=== PATIENT | female | born 1930 | race Caucasian/White ===

== ENCOUNTER 2016-11-22 12:54 | Observation (INO) ==
--- NOTE | 2016-11-22 13:06 | Emergency Department Note ---
Disposition Clinical Impression: Weakness, Frail elderly, Dizziness, Dementia, Skull defect, Bradycardia, COPD ( chronic obstructive pulmonary disease), Cerebrovascular disease, Hyperkalemia Disposition: Admitted As Inpatient Referrals: Stephanie Omer CNP [Primary Care Provider] - Forms: ED Satisfaction Letter General Adult HPI - General Chief complaint: ED Dizziness Stated complaint: Dizziness and lightheadness Time Seen by Provider: 11/22/16 13:05 Source: patient, family, EMS Limitations: no limitations - History of Present Illness HPI Narrative: 86-year-old female was brought in by EMS, there are concerns for dizziness and shortness of breath. The patient has a history of dementia and just started taking Aricept. She usually takes medication for her dizziness, meclizine, but it has been ineffective. The patient's daughter is here with her. The daughter explains that the patient has recently seen Dr. 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 There is no history of head trauma or fall. There is no history of chest pain shortness breath or abdominal pain no vomiting or diarrhea. The patient has been progressively confused no fevers or rashes or neck stiffness or acute back pain are reported or noted. There is been no trouble moving the arms or legs independently, no unilateral arm or leg weakness no dysarthria no seizures. The patient takes Plavix but no other blood thinners there is no history of bleeding or urinary symptoms. He has no history of robbin syncope. The patient's daughter reports the patient has become progressively weaker and can no longer take care of herself at home and requests evaluation and possible [place]. Pain Scale: 0 - Related Data Home Medications Medication Instructions Recorded Confirmed Alprazolam [Xanax] 0.25 mg PO Q8HR 07/03/15 02/09/16 Furosemide [Lasix] 20 mg PO QAM 07/03/15 02/09/16 Isosorbide MONOnitrate (24 HR) 30 mg PO QPM 07/03/15 02/09/16 [Imdur] Levothyroxine [Synthroid] 100 mcg PO QAM 07/03/15 02/09/16 Metoprolol [Lopressor] 12.5 mg PO BID 07/03/15 02/09/16 Simvastatin [Zocor] 40 mg PO HS 07/03/15 02/09/16 Amlodipine [Norvasc] 5 mg PO QAM 02/09/16 02/09/16 Clopidogrel [Plavix] 75 mg PO QAM 02/09/16 02/09/16 HYDROcodone/Acet 5/325 mg [[place] 1 tab PO HS 02/09/16 02/09/16 5-325 mg] Lansoprazole [Prevacid] 30 mg PO DAILY 02/09/16 02/09/16 Nitroglycerin [Nitrostat] 0.4 mg SL AD PRN 02/09/16 02/09/16 Polyethylene Glycol 3350 [MiraLAX] 17 gm PO BID PRN 02/09/16 02/09/16 Potassium Chloride [K-Tab ER] 10 meq PO BID 02/09/16 02/09/16 Vit A/C/E AC/Znox/Cupric Oxide 1 each PO BID 02/09/16 02/09/16 [Eye Vitamin-Minerals Tablet] Previous Rx's Medication Instructions Recorded HYDROcodone/Acet 5/325 mg [[place] 1 tab PO Q6H PRN #20 tab 04/07/16 5-325 mg] Pantoprazole Sodium [Protonix] 20 mg PO DAILY #30 tab 04/07/16 Ciprofloxacin [Cipro] 500 mg PO BID #14 tablet 08/31/16 Docusate [Colace] 100 mg PO BID #20 capsule 08/31/16 MetroNIDAZOLE [Flagyl] 500 mg PO TID #30 tablet 08/31/16 Polyethylene Glycol 3350 [MiraLAX] 17 gm PO DAILY #10 powd.pack 08/31/16 Allergies Allergy/AdvReac Type Severity Reaction Status Date / Time No Known Allergies Allergy Verified 07/03/15 11:44 All systems ED: reviewed and negative except as stated. Past Medical History - Past Medical History Medical history: Reports: CHF, coronary artery disease, DVT, hypertension, TIA Surgical history: Reports: cholecystectomy, hysterectomy, other Psychiatric history: Reports: anxiety - Social History Smoking Status: Never smoker Smokeless Tobacco Status: No Alcohol use: Reports: none Drug use: Reports: none Physical Exam - General Limitations: no limitations General appearance: alert, in no apparent distress - Head Head exam: atraumatic, other - Eye Eye exam: Present: normal appearance, EOMI, miosis. Absent: scleral icterus, conjunctival injection - ENT ENT exam: normal exam, normal oropharynx, mucous membranes moist, TM's normal bilaterally, normal external ear exam - Neck Neck exam: Present: normal inspection, full ROM, trachea midline. Absent: tenderness - Chest Chest inspection: Present: normal inspection, symmetric chest wall rise. Absent : tenderness - Respiratory Respiratory exam: Present: normal lung sounds bilaterally. Absent: respiratory distress - Cardiovascular Cardiovascular exam: Present: regular rate, normal rhythm, normal heart sounds - Abdominal Exam Abdominal exam: Present: soft, Non-Tender. Absent: tenderness, distention, guarding, rebound, rigidity, pulsatile mass - Extremities Exam Extremities exam: Present: normal inspection, full ROM. Absent: tenderness, normal capillary refill, pedal edema, joint swelling, calf tenderness - Expanded Lower Extremity Exam Hip/Pelvis exam: Present: full ROM. Absent: tenderness Upper leg exam: Present: full ROM. Absent: tenderness Knee exam: Present: full ROM. Absent: tenderness Lower leg exam: Present: full ROM, Homans' sign. Absent: tenderness Ankle exam: Present: full ROM. Absent: tenderness Foot/toe exam: Present: full ROM. Absent: tenderness Neurovascular/Tendon exam: Absent: motor deficit, sensory deficit, tendon deficit - Back Exam Back exam: Present: normal inspection, full ROM. Absent: tenderness, CVA tenderness (R), CVA tenderness (L), vertebral tenderness - Neurological Exam Neurological exam: Present: alert, CN II-XII intact. Absent: motor sensory deficit - Psychiatric Psychiatric exam: Present: normal affect - Skin Skin exam: Present: warm, dry, intact, normal color. Absent: rash, cyanosis, diaphoresis, erythema, pallor, mottled Course Vital Signs Temperature 98.2 F 11/22/16 12:57 Pulse Rate 47 11/22/16 12:57 Respiratory Rate 16 11/22/16 12:57 Blood Pressure 176/77 11/22/16 12:57 O2 Sat by Pulse Oximetry 98 11/22/16 12:57 Temperature 98.2 F 11/22/16 12:57 Pulse Rate 52 11/22/16 16:00 Respiratory Rate 16 11/22/16 16:00 Blood Pressure 150/64 11/22/16 16:00 O2 Sat by Pulse Oximetry 95 11/22/16 16:38 Oxygen Delivery Oxygen Delivery Room Air Medical Decision Making - [facility] Narrative Medical decision making narrative: Patient is elderly, she has had progressive weakness, increasing dementia is also reported per the patient's and daughter, they [place]. They report that they cannot care for her at home. The social group worker here reports she cannot get the patient to a [place] today based on the holiday. The family does not feel they can take the patient home, I have consulted the hospitalist for admission. The social group worker feels patient can get a [place] bed tomorrow. I discussed the case with the hospitalist initially who asked me to review with the family again to see if the patient could possibly go home. The patient's daughter is highly concerned and does not feel the patient is safe at home at all. The patient's is here he is elderly and frail and reports he cannot take care of her even for the night. They do not feel the patient is safe to go home at all and do not feel they can take her home. The patient herself feels she cannot go home as well. Based on the patient's family concerns and inability care for the patient, and the patient's inability to care for herself, I have re-consulted the hospitalist to accept the patient for observation pending [place] [facility] [place] tomorrow. The patient appears to be medically stable. - Lab Data Lab results reviewed: Yes I reviewed the patient's lab results. Result diagrams: 11/22/16 13:50 11/22/16 13:50 Lab Results 11/22/16 11/22/16 11/22/16 Range/Units 13:50 13:50 13:50 WBC 5.4 (4.3-11.1) K/mcL RBC 4.51 (3.82-4.97) M/mcL Hgb 13.5 (11.5-15.4) g/dL Hct 40.0 (35.3-44.9) % MCV 88.7 (83.0-100.0) fL MCH 29.9 (28.0-33.3) pg MCHC 33.8 (31.6-35.5) g/dL RDW 12.4 (11.5-14.5) % Plt Count 137 L (140-400) K/mcL MPV 9.7 (9.4-12.4) fL Immature Gran % 0.2 (0-4) % Seg Neutrophils % 57.9 % Lymphocytes % 24.3 % Monocytes % 8.9 % Eosinophils % 7.4 % Basophils % 1.3 % Neutrophils # 3.1 (1.6-8.9) K/mcL Lymphocytes # 1.3 (0.6-4.6) K/mcL Monocytes # 0.5 (0.0-1.3) K/mcL Eosinophils # 0.4 (0.0-0.6) K/mcL Basophils # 0.1 (0.0-0.2) K/mcL PT 11.1 (9.4-12.1) Seconds INR 1.0 APTT 30.9 (26.0-36.0) Seconds Sodium 135 L (136-145) mEq/L Potassium 5.1 H (3.5-4.5) mEq/L Chloride 105 (98-109) mEq/L Carbon Dioxide 21 (19-29) mEq/L BUN 13 (7-20) mg/dL Creatinine 0.92 (0.57-1.11) mg/dL Est GFR ( Amer) > 60 (> 60) Est GFR (Non-Af Amer) 58 L (> 60) BUN/Creatinine Ratio 14 (6-26) Glucose 88 (70-99) mg/dL Calculated Osmolality 280 (280-300) Lactic Acid (0.5-2.2) mmol/L Calcium 9.5 (8.6-10.8) mg/dL Total Bilirubin 0.8 (0.2-1.2) mg/dL Direct Bilirubin 0.2 (0.0-0.5) mg/dL Indirect Bilirubin 0.6 (0.0-1.2) mg/dL AST 32 (5-34) Units/L ALT 18 (0-55) Units/L Alkaline Phosphatase 101 (38-126) Units/L Troponin I (0-0.03) ng/mL C-Reactive Protein 1 (Less than 5) mg/L B-Natriuretic Peptide (0-100) pg/mL Serum Total Protein 7.2 (6.0-8.3) g/dL Albumin 3.6 (3.5-5.0) g/dL Globulin 3.6 H (2.4-3.5) g/dL Albumin/Globulin Ratio 1.0 L (1.1-2.2) TSH 0.520 (0.350-4.840) mcIU/mL Urine Color (Yellow) Urine Clarity (Clear) Urine pH (5.0-8.0) pH Units Ur Specific [place] (1.010-1.025) Urine Protein (Neg-Trace) mg/dL Urine Glucose (UA) (Normal) mg/dL Urine Ketones (Negative) mg/dL Urine Blood (Negative) Urine Nitrite (Negative) Urine Bilirubin (Negative) Urine Urobilinogen (Normal) mg/dL Ur Leukocyte Esterase (Negative) Ur Culture Indicated? (NO) 11/22/16 11/22/16 11/22/16 Range/Units 13:50 13:50 13:50 WBC (4.3-11.1) K/mcL RBC (3.82-4.97) M/mcL Hgb (11.5-15.4) g/dL Hct (35.3-44.9) % MCV (83.0-100.0) fL MCH (28.0-33.3) pg MCHC (31.6-35.5) g/dL RDW (11.5-14.5) % Plt Count (140-400) K/mcL MPV (9.4-12.4) fL Immature Gran % (0-4) % Seg Neutrophils % % Lymphocytes % % Monocytes % % Eosinophils % % Basophils % % Neutrophils # (1.6-8.9) K/mcL Lymphocytes # (0.6-4.6) K/mcL Monocytes # (0.0-1.3) K/mcL Eosinophils # (0.0-0.6) K/mcL Basophils # (0.0-0.2) K/mcL PT (9.4-12.1) Seconds INR APTT (26.0-36.0) Seconds Sodium (136-145) mEq/L Potassium (3.5-4.5) mEq/L Chloride (98-109) mEq/L Carbon Dioxide (19-29) mEq/L BUN (7-20) mg/dL Creatinine (0.57-1.11) mg/dL Est GFR ( Amer) (> 60) Est GFR (Non-Af Amer) (> 60) BUN/Creatinine Ratio (6-26) Glucose (70-99) mg/dL Calculated Osmolality (280-300) Lactic Acid 1.1 (0.5-2.2) mmol/L Calcium (8.6-10.8) mg/dL Total Bilirubin (0.2-1.2) mg/dL Direct Bilirubin (0.0-0.5) mg/dL Indirect Bilirubin (0.0-1.2) mg/dL AST (5-34) Units/L ALT (0-55) Units/L Alkaline Phosphatase (38-126) Units/L Troponin I 0.01 (0-0.03) ng/mL C-Reactive Protein (Less than 5) mg/L B-Natriuretic Peptide 64 (0-100) pg/mL Serum Total Protein (6.0-8.3) g/dL Albumin (3.5-5.0) g/dL Globulin (2.4-3.5) g/dL Albumin/Globulin Ratio (1.1-2.2) TSH (0.350-4.840) mcIU/mL Urine Color (Yellow) Urine Clarity (Clear) Urine pH (5.0-8.0) pH Units Ur Specific [place] (1.010-1.025) Urine Protein (Neg-Trace) mg/dL Urine Glucose (UA) (Normal) mg/dL Urine Ketones (Negative) mg/dL Urine Blood (Negative) Urine Nitrite (Negative) Urine Bilirubin (Negative) Urine Urobilinogen (Normal) mg/dL Ur Leukocyte Esterase (Negative) Ur Culture Indicated? (NO) 11/22/16 Range/Units 14:00 WBC (4.3-11.1) K/mcL RBC (3.82-4.97) M/mcL Hgb (11.5-15.4) g/dL Hct (35.3-44.9) % MCV (83.0-100.0) fL MCH (28.0-33.3) pg MCHC (31.6-35.5) g/dL RDW (11.5-14.5) % Plt Count (140-400) K/mcL MPV (9.4-12.4) fL Immature Gran % (0-4) % Seg Neutrophils % % Lymphocytes % % Monocytes % % Eosinophils % % Basophils % % Neutrophils # (1.6-8.9) K/mcL Lymphocytes # (0.6-4.6) K/mcL Monocytes # (0.0-1.3) K/mcL Eosinophils # (0.0-0.6) K/mcL Basophils # (0.0-0.2) K/mcL PT (9.4-12.1) Seconds INR APTT (26.0-36.0) Seconds Sodium (136-145) mEq/L Potassium (3.5-4.5) mEq/L Chloride (98-109) mEq/L Carbon Dioxide (19-29) mEq/L BUN (7-20) mg/dL Creatinine (0.57-1.11) mg/dL Est GFR ( Amer) (> 60) Est GFR (Non-Af Amer) (> 60) BUN/Creatinine Ratio (6-26) Glucose (70-99) mg/dL Calculated Osmolality (280-300) Lactic Acid (0.5-2.2) mmol/L Calcium (8.6-10.8) mg/dL Total Bilirubin (0.2-1.2) mg/dL Direct Bilirubin (0.0-0.5) mg/dL Indirect Bilirubin (0.0-1.2) mg/dL AST (5-34) Units/L ALT (0-55) Units/L Alkaline Phosphatase (38-126) Units/L Troponin I (0-0.03) ng/mL C-Reactive Protein (Less than 5) mg/L B-Natriuretic Peptide (0-100) pg/mL Serum Total Protein (6.0-8.3) g/dL Albumin (3.5-5.0) g/dL Globulin (2.4-3.5) g/dL Albumin/Globulin Ratio (1.1-2.2) TSH (0.350-4.840) mcIU/mL Urine Color Yellow (Yellow) Urine Clarity Clear (Clear) Urine pH 7.5 (5.0-8.0) pH Units Ur Specific [place] < 1.005 L (1.010-1.025) Urine Protein Negative (Neg-Trace) mg/dL Urine Glucose (UA) Normal (Normal) mg/dL Urine Ketones Negative (Negative) mg/dL Urine Blood Negative (Negative) Urine Nitrite Negative (Negative) Urine Bilirubin Negative (Negative) Urine Urobilinogen Normal (Normal) mg/dL Ur Leukocyte Esterase Negative (Negative) Ur Culture Indicated? NO (NO) - Radiology Data Radiology results reviewed: Yes I reviewed the patient's radiology results.
[2016-11-22] MEDS: 0.9 % Sodium Chloride 1,000 ML IVC SCH (13:52)
[2016-11-22 14:00] LABS: Basophils # 0.1 K/mcL (0.0-0.2); Basophils % 1.3 %; Eosinophils # 0.4 K/mcL (0.0-0.6); Eosinophils % 7.4 %; Hemoglobin 13.5 g/dL (11.5-15.4); Immature Granulocytes % 0.2 % (0-4); Lymphocytes # 1.3 K/mcL (0.6-4.6); Lymphocytes % 24.3 %; Mean Corpuscular HGB Conc 33.8 g/dL (31.6-35.5); Mean Corpuscular Hemoglobin 29.9 pg (28.0-33.3); Mean Corpuscular Volume 88.7 fL (83.0-100.0); Mean Platelet Volume 9.7 fL (9.4-12.4); Monocytes # 0.5 K/mcL (0.0-1.3); Monocytes % 8.9 %; Neutrophils # 3.1 K/mcL (1.6-8.9); Platelet Count 137 K/mcL (140-400); Red Blood Count 4.51 M/mcL (3.82-4.97); Red Cell Distribution Width 12.4 % (11.5-14.5); Segmented Neutrophils % 57.9 %
[2016-11-22 14:05] LABS: Prothrombin Time 11.1 Seconds (9.4-12.1)
[2016-11-22 14:07] LABS: Activated Partial Thrombo Time 30.9 Seconds (26.0-36.0)
[2016-11-22 14:16] LABS: Alanine Aminotransferase 18 Units/L (0-55); Albumin 3.6 g/dL (3.5-5.0); Alkaline Phosphatase 101 Units/L (38-126); Aspartate Amino Transferase 32 Units/L (5-34); BUN/Creatinine Ratio 14 (6-26); Bilirubin,Direct 0.2 mg/dL (0.0-0.5); Bilirubin,Indirect 0.6 mg/dL (0.0-1.2); Bilirubin,Total 0.8 mg/dL (0.2-1.2); Blood Urea Nitrogen 13 mg/dL (7-20); Calcium 9.5 mg/dL (8.6-10.8); Carbon Dioxide 21 mEq/L (19-29); Chloride 105 mEq/L (98-109); Globulin 3.6 g/dL (2.4-3.5); Glucose 88 mg/dL (70-99); Osmolality,Calculated 280 (280-300); Potassium 5.1 mEq/L (3.5-4.5); Sodium 135 mEq/L (136-145); Total Protein 7.2 g/dL (6.0-8.3); eGFR For African Americans > 60 (> 60); eGFR For Non-African Americans 58 (> 60)
[2016-11-22 14:36] LABS: Bilirubin,Urine Negative (Negative); Blood,Urine Negative (Negative); Clarity,Urine Clear (Clear); Color,Urine Yellow (Yellow); Glucose,Urine (UA) Normal (Normal); Ketones,Urine Negative (Negative); Leukocyte Esterase,Urine Negative (Negative); Nitrite,Urine Negative (Negative); PH,Urine 7.5 pH Units (5.0-8.0); Protein,Urine Negative (Neg-Trace); Specific Gravity,Urine < 1.005 (1.010-1.025); Urobilinogen,Urine Normal (Normal)
[2016-11-22 15:39] LABS: C-Reactive Protein 1 mg/L (Less than 5)
[2016-11-22] MEDS: ALPRAZolam 0.5 MG TABLET PO PRN (22:17)
[2016-11-23] MEDS ORDERED: Furosemide 20 MG TABLET PO PRN (00:08)
[2016-11-23] MEDS ORDERED: *HR* HYDROcodone/Acet 5/325 mg TABLET PO PRN (00:08)
[2016-11-23] MEDS ORDERED: Ondansetron 4 MG/2 ML VIAL IVP PRN (00:12)
[2016-11-23] MEDS ORDERED: Acetaminophen 325 MG TABLET PO PRN (00:12)
[2016-11-23] MEDS ORDERED: Naloxone 0.4 MG/ML INJ IVP PRN (00:12)
--- NOTE | 2016-11-23 00:27 | Internal Med History&Physical ---
Date of Encounter: 11/23/16 Time of Encounter: 23:30 Assessment and Plan (1) Alzheimer's dementia Current visit: Yes Status: Chronic Patient has known history of Alzheimers dementia. According to PCP note from 11/08/16, patient is having worsening confusion, for which she was referred back to neurology. Her PCP has recommended ECF placement due to worsening dementia/confusion. Continue home medication Aricept. Urinalysis shows no signs of infection. Consult to social science research assistant for ECF placement. Qualifiers: Alzheimer's disease onset: unspecified onset Dementia behavioral disturbance: without behavioral disturbance Qualified Code(s): G30.9 - Alzheimer's disease, unspecified; F02.80 - Dementia in other diseases classified elsewhere without behavioral disturbance (2) Lightheadedness Current visit: Yes Status: Acute (3) Diastolic CHF Current visit: Yes Status: Acute Continue home med Lasix PRN Daily weight Measure input/output Qualifiers: Congestive heart failure chronicity: chronic Qualified Code(s): I50.32 - Chronic diastolic (congestive) heart failure (4) Hypothyroidism Current visit: Yes Status: Acute Continue home medication Levothyroxine. Qualifiers: Hypothyroidism type: unspecified Qualified Code(s): E03.9 - Hypothyroidism , unspecified (5) Status post below knee amputation of left lower extremity Current visit: Yes Status: Acute Patient has prosthetic leg she uses regularly. (6) Frail elderly Current visit: Yes Status: Acute Consult to PT/OT (7) Anxiety Current visit: No Status: Acute Xanax .5mg PO Q4HR PRN (8) DVT prophylaxis Current visit: Yes Status: Acute Heparin SQ Q8HR Internal Medicine - H&P: HPI Chief complaint: lightheadedness, confusion Admitted From: Emergency Dept Plans for Post Hospital Care: Transfer Bioinformatics Programmer Care History of present illness: PCP: Stephanie Omer Ms. Mendez is a 86 year old female with PMHx of diastolic CHF, depression, Alzheimers dementia, hypothyroidism, left below the knee amputation, HTN, aortic stenosis, history of aortic valve repair. She was brought to [facility] via EMS due to concerns for dizziness/lightheadedness. Patient is a poor historian and has baseline dementia. History was obtained from patient, but the level of accuracy is unclear, as patient did not have any family members during examination. She is alert and oriented to person and place, but is unable to answer the majority of questions that were asked to her. She states that she lives at home with her but is not sure why she is at the hospital. Per records, patient was brought to hospital by daughter, who states that the patient is getting more weak and cannot take care of herself. Daughter requests evaluation for fci placement. Past Med Surg Social Fam HX - Past Medical History Medical history: CHF, coronary artery disease, DVT, hypertension, TIA Psychiatric history: anxiety - Past Surgical History Surgical History: cholecystectomy, hysterectomy, other - Social History Smoking Status: Never smoker Smokeless Tobacco Status: No Alcohol use: none Drug use: none - Family History Father Hx Family Cardiac Disorders: Yes Internal Medicine - H&P: Meds Alprazolam [Xanax] 0.5 mg PO QID 07/03/15 [History] Furosemide [Lasix] 20 mg PO QAM PRN 07/03/15 [History] Isosorbide MONOnitrate (24 HR) [Imdur] 30 mg PO QPM 07/03/15 [History] Levothyroxine [Synthroid] 100 mcg PO QAM 07/03/15 [History] Metoprolol [Lopressor] 12.5 mg PO BID 07/03/15 [History] Amlodipine [Norvasc] 5 mg PO QAM 02/09/16 [History] Clopidogrel [Plavix] 75 mg PO QAM 02/09/16 [History] HYDROcodone/Acet 5/325 mg [[place] 5-325 mg] 1 tab PO Q6H PRN #20 tab 04/07/16 [Rx ] Ciprofloxacin [Cipro] 500 mg PO BID #14 tablet 08/31/16 [Rx] Docusate [Colace] 100 mg PO BID #20 capsule 08/31/16 [Rx] Polyethylene Glycol 3350 [MiraLAX] 17 gm PO DAILY #10 powd.pack 08/31/16 [Rx] Donepezil [Aricept] 5 mg PO DAILY 11/22/16 [History] Pantoprazole Sodium [Protonix] 20 mg PO BID 11/22/16 [History] Allergies No Known Allergies Allergy (Verified 07/03/15 11:44) ROS unobtainable: due to mental status All Systems PM: A 10-system review of systems was performed and is negative for pertinent findings except as documented above in the HPI. - Constitutional Vitals: Temp Pulse Resp BP Pulse Ox 97.7 F 65 16 178/73 97 11/22/16 23:51 11/22/16 23:51 11/22/16 23:51 11/22/16 23:51 11/22/16 23:51 General appearance: Present: A&O X 2, pleasant, no acute distress Exam: alert and oriented to person and place. Has baseline dementia. Does not know why she is here. - Head Head exam: Present: atraumatic, normocephalic - Respiratory Respiratory exam: Present: CTAB - Cardiovascular Cardiovascular exam: Present: RRR, +S1, +S2 - Extremities Exam Extremities exam: Absent: cyanotic, pedal edema Additional comments: patient has a left below the knee amputation. - Neurological Exam Neurological exam: Present: alert, altered, no focal deficits - Psychiatric Psychiatric exam: Present: normal affect, normal mood - Skin Skin exam: Absent: abrasion, cyanosis, diaphoretic Internal Med - H&P Results - Labs CBC & Chem 7: 11/23/16 04:21 11/23/16 04:21
[2016-11-23] MEDS: 0.9 % Sodium Chloride 1,000 ML IVC SCH ×2 (02:52→14:05)
[2016-11-23 04:47] LABS: Basophils # 0.1 K/mcL (0.0-0.2); Basophils % 0.8 %; Eosinophils # 0.5 K/mcL (0.0-0.6); Eosinophils % 7.5 %; Hematocrit 36.5 % (35.3-44.9); Hemoglobin 12.5 g/dL (11.5-15.4); Immature Granulocytes % 0.2 % (0-4); Lymphocytes # 1.4 K/mcL (0.6-4.6); Mean Corpuscular HGB Conc 34.2 g/dL (31.6-35.5); Mean Corpuscular Volume 87.5 fL (83.0-100.0); Mean Platelet Volume 10.1 fL (9.4-12.4); Monocytes # 0.8 K/mcL (0.0-1.3); Neutrophils # 3.6 K/mcL (1.6-8.9); Platelet Count 129 K/mcL (140-400); Red Blood Count 4.17 M/mcL (3.82-4.97); Red Cell Distribution Width 12.4 % (11.5-14.5); Segmented Neutrophils % 57.5 %
[2016-11-23 05:12] LABS: BUN/Creatinine Ratio 19 (6-26); Blood Urea Nitrogen 15 mg/dL (7-20); Calcium 8.9 mg/dL (8.6-10.8); Carbon Dioxide 19 mEq/L (19-29); Chloride 111 mEq/L (98-109); Glucose 82 mg/dL (70-99); Osmolality,Calculated 284 (280-300); Sodium 137 mEq/L (136-145); eGFR For African Americans > 60 (> 60); eGFR For Non-African Americans > 60 (> 60)
[2016-11-23] MEDS: *HR* Heparin 5,000 UNIT/ML VIAL SQ SCH ×2 (06:59→16:29)
[2016-11-23] MEDS: amLODIPine 5 MG TABLET PO SCH (09:36)
[2016-11-23] MEDS ORDERED: Furosemide 20 MG/2 ML VIAL IVP ONE (11:13)
[2016-11-23] MEDS: ALPRAZolam 0.5 MG TABLET PO PRN ×2 (11:24→16:30)
--- NOTE | 2016-11-23 16:06 | Internal Med Progress Note ---
Date of Encounter: 11/23/16 Time of Encounter: 13:00 - Assessment and plan (1) Hypertensive urgency Current Visit: Yes Status: Acute Assessment and plan: Patient having severely elevated blood pressure earlier today. Started on intravenous hydralazine when necessary. Patient was not taking her medications at home. May have resistant hypertension as such. Will monitor blood pressure closely. (2) Vertigo Current Visit: Yes Status: Acute Assessment and plan: Takes meclizine as needed at home. We will add to her medication regimen. We will also get MRI of the brain to see if for any organic cause for her vertigo. (3) Alzheimer's dementia Current Visit: Yes Status: Chronic Assessment and plan: On Aricept. Will continue. Qualifiers: Alzheimer's disease onset: unspecified onset Dementia behavioral disturbance: without behavioral disturbance Qualified Code(s): G30.9 - Alzheimer's disease, unspecified; F02.80 - Dementia in other diseases classified elsewhere without behavioral disturbance (4) Anxiety Current Visit: Yes Status: Chronic Assessment and plan: Takes Xanax as needed. We will continue for now. (5) Diastolic CHF Current Visit: Yes Status: Chronic Assessment and plan: Is on Lasix as needed at home. Unclear if patient has been taking this at home. We will give 1 dose of Lasix intravenously today. Monitor urine output and renal function. Qualifiers: Congestive heart failure chronicity: chronic Qualified Code(s): I50.32 - Chronic diastolic (congestive) heart failure (6) Frail elderly Current Visit: Yes Status: Acute (7) Hypothyroidism Current Visit: Yes Status: Acute Assessment and plan: On levothyroxine Qualifiers: Hypothyroidism type: unspecified Qualified Code(s): E03.9 - Hypothyroidism , unspecified (8) Lightheadedness Current Visit: Yes Status: Acute Assessment and plan: PTOT evaluation. - Subjective Interval history: Patient is feeling better today. She was not having any lightheadedness and she sat up in her bed. Patient has a history of what I going takes meclizine periodically but this was not helping her yesterday. She was also following up with neurology and was being evaluated for her dementia. - Constitutional Vitals: Temp Pulse Resp BP Pulse Ox 97.3 F L 61 15 171/72 95 11/23/16 15:31 11/23/16 15:31 11/23/16 15:31 11/23/16 15:31 11/23/16 15:31 General appearance: Present: cooperative, A&O X 2, pleasant, no acute distress - Respiratory Respiratory exam: Present: CTAB. Absent: accessory muscle use, rales, rhonchi, wheezes - Cardiovascular Cardiovascular exam: Present: RRR, +S1, +S2, systolic murmur. Absent: diastolic murmur, gallop, rubs - GI/Abdominal GI/Abdominal exam: Present: normal bowel sounds, soft, no peritoneal signs. Absent: distended, tenderness - Extremities Exam Extremities exam: Present: warm, radial pulses palpable and symetrical. Absent : calf tenderness, cyanotic, pedal edema Additional comments: Status post left BKA - Neurological Exam Neurological exam: Present: CN II-XII intact, oriented X3, no focal deficits, strengths equal and symetr throughout. Absent: facial droop, speech deficit - Skin Skin exam: Present: dry, intact Internal Medicine: Result - Labs CBC & Chem 7: 11/23/16 04:21 11/23/16 04:21 Labs: Short CBC 11/23/16 Range/Units 04:21 WBC 6.3 (4.3-11.1) K/mcL Hgb 12.5 (11.5-15.4) g/dL Hct 36.5 (35.3-44.9) % Plt Count 129 L (140-400) K/mcL Neutrophils # 3.6 (1.6-8.9) K/mcL BMP 11/23/16 04:21 Sodium 137 Potassium 4.0 D Chloride 111 H Carbon Dioxide 19 BUN 15 Creatinine 0.79 Glucose 82 Calcium 8.9 - ABG Interpretation ABG results: PT/INR, D-dimer PT 11.1 Seconds (9.4-12.1) 11/22/16 13:50 Consult Discharge Plan - Plan Instructions: Donepezil (By mouth) - Attending Attestation This document has been at least partially created by [employer] recognition technology by Dr. Rendon. Errors in grammar, wording or other phrases may exist. If errors are found after the documentation is signed, they will be addressed individually in the addendum section of this document when appropriate. Medical Decision Making - MDM Narrative Medical decision making narrative: Moderate risk for complications - Lab Data Result diagrams: 11/23/16 04:21 11/23/16 04:21 Lab Results 11/23/16 11/23/16 Range/Units 04:21 04:21 WBC 6.3 (4.3-11.1) K/mcL RBC 4.17 (3.82-4.97) M/mcL Hgb 12.5 (11.5-15.4) g/dL Hct 36.5 (35.3-44.9) % MCV 87.5 (83.0-100.0) fL MCH 30.0 (28.0-33.3) pg MCHC 34.2 (31.6-35.5) g/dL RDW 12.4 (11.5-14.5) % Plt Count 129 L (140-400) K/mcL MPV 10.1 (9.4-12.4) fL Immature Gran % 0.2 (0-4) % Seg Neutrophils % 57.5 % Lymphocytes % 22.0 % Monocytes % 12.0 % Eosinophils % 7.5 % Basophils % 0.8 % Neutrophils # 3.6 (1.6-8.9) K/mcL Lymphocytes # 1.4 (0.6-4.6) K/mcL Monocytes # 0.8 (0.0-1.3) K/mcL Eosinophils # 0.5 (0.0-0.6) K/mcL Basophils # 0.1 (0.0-0.2) K/mcL Sodium 137 (136-145) mEq/L Potassium 4.0 D (3.5-4.5) mEq/L Chloride 111 H (98-109) mEq/L Carbon Dioxide 19 (19-29) mEq/L BUN 15 (7-20) mg/dL Creatinine 0.79 (0.57-1.11) mg/dL Est GFR ( Amer) > 60 (> 60) Est GFR (Non-Af Amer) > 60 (> 60) BUN/Creatinine Ratio 19 (6-26) Glucose 82 (70-99) mg/dL Calculated Osmolality 284 (280-300) Calcium 8.9 (8.6-10.8) mg/dL
--- NOTE | 2016-11-23 18:40 | Electrocardiograph Report ---
[facility] Test Date: 2016-11-22 Pat Name: GOMEZ LARKIN Department: 103 Room: 3B45 Gender: F Sourcing Specialist: INGRIS : [id number] Requested By: Alfonso Rendon Order Number: [id number] Reading MD: Brandy Ling Measurements Intervals [place] Rate: 47 P: 13 AR: 184 QRS: 8 QRSD: 110 T: 48 QT: 457 QTc: 420 Interpretive Statements SINUS BRADYCARDIA Electronically Signed On 11-23-16 18:38:29 EST by Brandy Ling
[2016-11-23] MEDS: Isosorbide MONOnitrate (24 HR) 30 MG TAB.ER.24H PO SCH (20:34)
[2016-11-23] MEDS ORDERED: *HR* LORazepam 2 MG/ML VIAL IVP ONE (21:18)
[2016-11-23] MEDS ORDERED: *HR* LORazepam 2 MG/ML VIAL IM STA (21:19)
[2016-11-23] MEDS ORDERED: Haloperidol Lactate 5 MG/ML VIAL IM STA (21:19)
[2016-11-24] MEDS: *HR* Heparin 5,000 UNIT/ML VIAL SQ SCH ×3 (00:01→15:25)
[2016-11-24 00:57] LABS: Thyroid Stimulating Hormone 0.392 mcIU/mL (0.350-4.840)
[2016-11-24] MEDS: 0.9 % Sodium Chloride 1,000 ML IVC SCH (07:19)
[2016-11-24] MEDS: Thiamine (B-1) 100 MG TABLET PO SCH (08:07)
[2016-11-24] MEDS: Folic Acid 1 MG TABLET PO SCH (08:07)
[2016-11-24] MEDS: Vitamin B Complex/Vit C/Vit E 1 EACH TABLET PO SCH (08:07)
[2016-11-24] MEDS: amLODIPine 5 MG TABLET PO SCH (08:08)
--- NOTE | 2016-11-24 11:20 | Internal Med Progress Note ---
Date of Encounter: 11/24/16 Time of Encounter: 10:30 - Assessment and plan (1) Hypertensive urgency Current Visit: Yes Status: Acute Assessment and plan: Blood pressure is improved compared to yesterday but still elevated. We will increase Norvasc dosage to 10 mg by mouth daily. Continue to monitor blood pressure. (2) Vertigo Current Visit: Yes Status: Acute Assessment and plan: We will order MRI of the brain today. Follow-up for results. Continue physical therapy. (3) Alzheimer's dementia Current Visit: Yes Status: Chronic Assessment and plan: Chronic. On Aricept. Qualifiers: Alzheimer's disease onset: unspecified onset Dementia behavioral disturbance: without behavioral disturbance Qualified Code(s): G30.9 - Alzheimer's disease, unspecified; F02.80 - Dementia in other diseases classified elsewhere without behavioral disturbance (4) Anxiety Current Visit: Yes Status: Chronic Assessment and plan: Takes Xanax when necessary. (5) Diastolic CHF Current Visit: Yes Status: Chronic Assessment and plan: patient had good response to Lasix. Currently not in acute failure. Will continue to use as needed. Qualifiers: Congestive heart failure chronicity: chronic Qualified Code(s): I50.32 - Chronic diastolic (congestive) heart failure (6) Frail elderly Current Visit: Yes Status: Acute Assessment and plan: Elderly patient with vertigo. At risk for falls. Physical therapy consulted. Recommended placement to [facility]. cement storage worker has also been consulted to make arrangements for this. (7) Hypothyroidism Current Visit: Yes Status: Acute Assessment and plan: On Synthroid Qualifiers: Hypothyroidism type: unspecified Qualified Code(s): E03.9 - Hypothyroidism , unspecified (8) Lightheadedness Current Visit: Yes Status: Acute Assessment and plan: Related to vertigo. - Subjective Interval history: Patient is sitting up in bed. Denies any complaints at this time. No chest pain. No shortness of breath. Does have intermittent lightheadedness. - Constitutional Vitals: Temp Pulse Resp BP Pulse Ox 98.2 F 93 16 183/77 94 L 11/24/16 11:10 11/24/16 11:10 11/24/16 11:10 11/24/16 11:10 11/24/16 11:10 General appearance: Present: cooperative, A&O X 2, pleasant, no acute distress - Cardiovascular Cardiovascular exam: Present: RRR, +S1, +S2. Absent: diastolic murmur, gallop, rubs, systolic murmur - GI/Abdominal GI/Abdominal exam: Present: normal bowel sounds, soft, no peritoneal signs. Absent: distended, tenderness - Extremities Exam Additional comments: Status post left BKA - Neurological Exam Neurological exam: Present: CN II-XII intact, no focal deficits, strengths equal and symetr throughout. Absent: facial droop, speech deficit - Skin Skin exam: Present: dry, intact Internal Medicine: Result - Labs CBC & Chem 7: 11/23/16 04:21 11/23/16 04:21 Labs: BMP 11/23/16 04:21 Sodium 137 Potassium 4.0 D Chloride 111 H Carbon Dioxide 19 BUN 15 Creatinine 0.79 Glucose 82 Calcium 8.9 - ABG Interpretation ABG results: PT/INR, D-dimer PT 11.1 Seconds (9.4-12.1) 11/22/16 13:50 Consult Discharge Plan - Plan Instructions: Donepezil (By mouth) Referrals: Stephanie Omer, CROZE CUTTER [Primary Care Provider] - - Attending Attestation This document has been at least partially created by [employer] voice recognition technology by Dr. Rendon. Errors in grammar, wording or other phrases may exist. If errors are found after the documentation is signed, they will be addressed individually in the addendum section of this document when appropriate. Medical Decision Making - MDM Narrative Medical decision making narrative: High risk for complications due to hypertensive urgency. Requiring intermittent intravenous antihypertensive medications. - Medical Records Medical records reviewed: Yes I reviewed the patient's medical records. - Lab Data Result diagrams: 11/23/16 04:21 11/23/16 04:21 Lab Results 11/23/16 11/23/16 Range/Units 04:21 04:21 WBC 6.3 (4.3-11.1) K/mcL RBC 4.17 (3.82-4.97) M/mcL Hgb 12.5 (11.5-15.4) g/dL Hct 36.5 (35.3-44.9) % MCV 87.5 (83.0-100.0) fL MCH 30.0 (28.0-33.3) pg MCHC 34.2 (31.6-35.5) g/dL RDW 12.4 (11.5-14.5) % Plt Count 129 L (140-400) K/mcL MPV 10.1 (9.4-12.4) fL Immature Gran % 0.2 (0-4) % Seg Neutrophils % 57.5 % Lymphocytes % 22.0 % Monocytes % 12.0 % Eosinophils % 7.5 % Basophils % 0.8 % Neutrophils # 3.6 (1.6-8.9) K/mcL Lymphocytes # 1.4 (0.6-4.6) K/mcL Monocytes # 0.8 (0.0-1.3) K/mcL Eosinophils # 0.5 (0.0-0.6) K/mcL Basophils # 0.1 (0.0-0.2) K/mcL Sodium 137 (136-145) mEq/L Potassium 4.0 D (3.5-4.5) mEq/L Chloride 111 H (98-109) mEq/L Carbon Dioxide 19 (19-29) mEq/L BUN 15 (7-20) mg/dL Creatinine 0.79 (0.57-1.11) mg/dL Est GFR ( Amer) > 60 (> 60) Est GFR (Non-Af Amer) > 60 (> 60) BUN/Creatinine Ratio 19 (6-26) Glucose 82 (70-99) mg/dL Calculated Osmolality 284 (280-300) Calcium 8.9 (8.6-10.8) mg/dL TSH 0.392 (0.350-4.840) mcIU/mL
[2016-11-24] MEDS ORDERED: amLODIPine 5 MG TABLET PO ONE (11:24)
[2016-11-24 11:43] LABS: Bilirubin,Urine Negative (Negative); Blood,Urine Negative (Negative); Clarity,Urine Clear (Clear); Color,Urine Yellow (Yellow); Glucose,Urine (UA) Normal (Normal); Ketones,Urine Trace mg/dL (Negative); Leukocyte Esterase,Urine Small (Negative); Nitrite,Urine Negative (Negative); Protein,Urine Negative (Neg-Trace); Specific Gravity,Urine 1.021 (1.010-1.025); Urobilinogen,Urine Normal (Normal)
[2016-11-24 11:45] LABS: Bacteria,Urine None Seen per hpf (None-Few); Hyaline Casts,Urine None Seen per lpf (None-Few); Squamous Epithelial Cell,Urine Many per lpf (None-Few)
[2016-11-24] MEDS: Isosorbide MONOnitrate (24 HR) 30 MG TAB.ER.24H PO SCH (17:18)
[2016-11-24] MEDS: ALPRAZolam 0.5 MG TABLET PO PRN (19:54)
[2016-11-24] MEDS: Haloperidol Lactate 5 MG/ML VIAL IVP PRN (19:55)
[2016-11-25] MEDS: *HR* Heparin 5,000 UNIT/ML VIAL SQ SCH ×3 (01:07→15:44)
[2016-11-25] MEDS: ALPRAZolam 0.5 MG TABLET PO PRN ×4 (01:30→20:31)
[2016-11-25] MEDS ORDERED: *HR* LORazepam 2 MG/ML VIAL IVP ONE (02:36)
[2016-11-25] MEDS: Haloperidol Lactate 5 MG/ML VIAL IVP PRN (02:50)
[2016-11-25] MEDS: Folic Acid 1 MG TABLET PO SCH (07:54)
[2016-11-25] MEDS: Vitamin B Complex/Vit C/Vit E 1 EACH TABLET PO SCH (07:54)
[2016-11-25] MEDS: amLODIPine 5 MG TABLET PO SCH (07:55)
[2016-11-25] MEDS: Thiamine (B-1) 100 MG TABLET PO SCH (07:55)
--- NOTE | 2016-11-25 11:08 | Discharge Summary ---
Date of Encounter: 11/25/16 Time of Encounter: 10:45 - Discharge Diagnosis (1) Hypertensive urgency Priority: Primary Status: Acute (2) Vertigo Priority: Secondary Status: Acute (3) Alzheimer's dementia Priority: Secondary Status: Chronic Qualifiers: Alzheimer's disease onset: unspecified onset Dementia behavioral disturbance: without behavioral disturbance Qualified Code(s): G30.9 - Alzheimer's disease, unspecified; F02.80 - Dementia in other diseases classified elsewhere without behavioral disturbance (4) Anxiety Priority: Secondary Status: Chronic (5) Diastolic CHF Priority: Secondary Status: Chronic Qualifiers: Congestive heart failure chronicity: chronic Qualified Code(s): I50.32 - Chronic diastolic (congestive) heart failure (6) Frail elderly Priority: Secondary Status: Acute (7) Hypothyroidism Priority: Secondary Status: Acute Qualifiers: Hypothyroidism type: other Qualified Code(s): E03.8 - Other specified hypothyroidism (8) Lightheadedness Priority: Secondary Status: Acute - Discharge Medications Prescriptions: Alprazolam [Xanax 0.5 MG Tablet] 0.5 mg PO QID PRN #15 tablet PRN Reason: Anxiety Amlodipine [Norvasc] 10 mg PO QAM #30 tablet Folic Acid 1 mg PO DAILY #30 tablet Furosemide [Lasix] 20 mg PO DAILY #30 tablet Vitamin B Complex/Vit C/Vit E [Stresstab] 1 each PO DAILY #30 tablet Home Medications: Isosorbide MONOnitrate (24 HR) [Imdur] 30 mg PO QPM 07/03/15 [History] Levothyroxine [Synthroid] 100 mcg PO QAM 07/03/15 [History] Metoprolol [Lopressor] 12.5 mg PO BID 07/03/15 [History] Clopidogrel [Plavix] 75 mg PO QAM 02/09/16 [History] Docusate [Colace] 100 mg PO BID #20 capsule 08/31/16 [Rx] Polyethylene Glycol 3350 [MiraLAX] 17 gm PO DAILY #10 powd.pack 08/31/16 [Rx] Donepezil [Aricept] 5 mg PO DAILY 11/22/16 [History] Pantoprazole Sodium [Protonix] 20 mg PO BID 11/22/16 [History] Alprazolam [Xanax 0.5 MG Tablet] 0.5 mg PO QID PRN #15 tablet 11/25/16 [Rx] Amlodipine [Norvasc] 10 mg PO QAM #30 tablet 11/25/16 [Rx] Folic Acid 1 mg PO DAILY #30 tablet 11/25/16 [Rx] Furosemide [Lasix] 20 mg PO DAILY #30 tablet 11/25/16 [Rx] Vitamin B Complex/Vit C/Vit E [Stresstab] 1 each PO DAILY #30 tablet 11/25/16 [ Rx] Allergies/Adverse Reactions: Allergies No Known Allergies Allergy (Verified 07/03/15 11:44) Procedures/tests Complete & Pending: Procedures Performed prior 72 hours Category Date Time Status MR head/brain wo con [MR] Routine MRI 11/24/16 07:33 Completed ECG 12 lead ECG [ECG] Routine Y 11/22/16 13:02 Completed Date of admission: 11/22/16 18:29 Primary care physician: Stephanie Omer CNP Consults: 11/23/16 00:19 Consult to Occupational Therapy [CONS] Routine Comment: Evaluate, develop and implement POC Consult to Physical Therapy [CONS] Routine Comment: Evaluate, develop and implement POC Consult to Adding Machine Mechanic [CONS] Routine Reason for SW Consult: ECF placement Discharging clinician: Alfonso Rendon Anticipated date of discharge: 11/26/16 - Patient Status Disposition: Transfer SNF Condition: Fair Functional capacity at discharge: uses cane/walker Overall status at discharge: patient is progressing back to baseline - Discharge Instructions Instructions: Donepezil (By mouth), Chronic Hypertension (DC) Follow Up With: Stephanie Omer CNP [Primary Care Provider] - (In 1-2 weeks) Additional Instructions: Follow-up with neurology in 1-2 weeks as scheduled - Diet and Activity Activity: as per physical therapy Diet: low fat, low cholesterol, low salt diet Hospital course: Ms. Mendez is a 86 year old female history of essential hypertension, Alzheimer' s dementia who was observed in the hospital after she presented with lightheadedness. Patient has a history of vertigo and takes meclizine as needed. She also has been seen in urology as outpatient and was recently started on Aricept. During her stay here, patient was having hypertensive urgency with severely elevated blood pressure. She had required intravenous hydralazine to control her blood pressure better. Her blood pressure has improved and patient is currently on amlodipine, metoprolol and isosorbide mononitrate. She is not feeling as lightheaded as before. She also underwent MRI of the brain which showed severe chronic microvascular changes. She was evaluated by physical therapy and recommended placement to [facility] facility. She will be discharged to rehabilitation once she has a bed available for her. She will follow up with urology for further management of her vertigo symptoms and her dementia. - Time Spent with Patient Total time spent providing and/or coordinating discharge services: Greater than 30 minutes (35 min) - Constitutional Vitals: Temp Pulse Resp BP Pulse Ox 97.2 F L 60 16 136/57 94 L 11/25/16 07:21 11/25/16 07:21 11/25/16 07:21 11/25/16 07:21 11/25/16 07:21 General appearance: Present: cooperative, A&O X 1, pleasant, no acute distress Exam: Disoriented - Respiratory Respiratory exam: Present: CTAB. Absent: accessory muscle use, rales, rhonchi, wheezes - Cardiovascular Cardiovascular exam: Present: RRR, +S1, +S2. Absent: diastolic murmur, gallop, rubs, systolic murmur - GI/Abdominal GI/Abdominal exam: Present: normal bowel sounds, soft, no peritoneal signs. Absent: distended, tenderness - Extremities Exam Extremities exam: Present: warm, radial pulses palpable and symetrical. Absent : calf tenderness, cyanotic, pedal edema Additional comments: Left BKA - Neurological Exam Neurological exam: Present: alert, no focal deficits. Absent: facial droop, speech deficit - Attending Attestation This document has been at least partially created by [employer] recognition technology by Dr. Rendon. Errors in grammar, wording or other phrases may exist. If errors are found after the documentation is signed, they will be addressed individually in the addendum section of this document when appropriate.
--- NOTE | 2016-11-25 11:19 | Physician Discharge Referral ---
ExtendedCare Referral Info Transfer To: SNF Provider in Charge after Transfer: PCP Institutional Level of Care: Skilled - Diagnosis (1) Hypertensive urgency Priority: Primary Status: Acute (2) Vertigo Priority: Secondary Status: Acute (3) Alzheimer's dementia Priority: Secondary Status: Chronic (4) Anxiety Priority: Secondary Status: Chronic (5) Diastolic CHF Priority: Secondary Status: Chronic (6) Frail elderly Priority: Secondary Status: Acute (7) Hypothyroidism Priority: Secondary Status: Acute (8) Lightheadedness Priority: Secondary Status: Acute Prognosis: Fair Aware of Diagnosis: Family Aware of Prognosis: Family - Transfer Medications Prescriptions: Alprazolam [Xanax 0.5 MG Tablet] 0.5 mg PO QID PRN #15 tablet PRN Reason: Anxiety Amlodipine [Norvasc] 10 mg PO QAM #30 tablet Folic Acid 1 mg PO DAILY #30 tablet Furosemide [Lasix] 20 mg PO DAILY #30 tablet Vitamin B Complex/Vit C/Vit E [Stresstab] 1 each PO DAILY #30 tablet Home Medications: Isosorbide MONOnitrate (24 HR) [Imdur] 30 mg PO QPM 07/03/15 [History] Levothyroxine [Synthroid] 100 mcg PO QAM 07/03/15 [History] Metoprolol [Lopressor] 12.5 mg PO BID 07/03/15 [History] Clopidogrel [Plavix] 75 mg PO QAM 02/09/16 [History] Docusate [Colace] 100 mg PO BID #20 capsule 08/31/16 [Rx] Polyethylene Glycol 3350 [MiraLAX] 17 gm PO DAILY #10 powd.pack 08/31/16 [Rx] Donepezil [Aricept] 5 mg PO DAILY 11/22/16 [History] Pantoprazole Sodium [Protonix] 20 mg PO BID 11/22/16 [History] Alprazolam [Xanax 0.5 MG Tablet] 0.5 mg PO QID PRN #15 tablet 11/25/16 [Rx] Amlodipine [Norvasc] 10 mg PO QAM #30 tablet 11/25/16 [Rx] Folic Acid 1 mg PO DAILY #30 tablet 11/25/16 [Rx] Furosemide [Lasix] 20 mg PO DAILY #30 tablet 11/25/16 [Rx] Vitamin B Complex/Vit C/Vit E [Stresstab] 1 each PO DAILY #30 tablet 11/25/16 [ Rx] Allergies/Adverse Reactions: Allergies No Known Allergies Allergy (Verified 07/03/15 11:44) - Respiratory Orders Smoking Cessation: Smoking cessation has been advised. For more information, call the [place] Tobacco Quit Line at 1-594-DUIJ-NOW. - Ancillary Orders May use pressure relief devices daily prn, May consult with Dentist, Business Area Director, Carpenter Labor Supervisor PRN - Advance Directives Code Status: DNR-Comfort Care - Mobility Orders Other (Per physical therapy) - Rehabiliation Orders Rehab Potential: Fair Rehab Orders: Evaluation for Physical Therapy, Evaluation for Occupational Therapy - Treatments Skin tear care topically daily PRN per policy - Diet Orders Cardiac CERTIFICATION: I certify that the transfer of the above named patient to an Extended Care Facility is necessary for the continuing treatment of the diagnosis listed. The above information is true and accurate reflection of patient's current condition. Confidential - Redisclosure prohibited without a patient's written consent.
[2016-11-25] MEDS: Isosorbide MONOnitrate (24 HR) 30 MG TAB.ER.24H PO SCH (17:18)
[2016-11-26] MEDS: *HR* Heparin 5,000 UNIT/ML VIAL SQ SCH ×2 (01:09→05:50)
[2016-11-26] MEDS: ALPRAZolam 0.5 MG TABLET PO PRN ×2 (05:50→12:54)
[2016-11-26] MEDS: amLODIPine 5 MG TABLET PO SCH (08:41)
[2016-11-26] MEDS: Folic Acid 1 MG TABLET PO SCH (08:42)
[2016-11-26] MEDS: Thiamine (B-1) 100 MG TABLET PO SCH (08:42)
[2016-11-26] MEDS: Vitamin B Complex/Vit C/Vit E 1 EACH TABLET PO SCH (08:42)
--- NOTE | 2016-11-26 13:58 | Internal Med Progress Note ---
Date of Encounter: 11/26/16 Time of Encounter: 09:30 - Assessment and plan (1) Hypertensive urgency Current Visit: Yes Status: Resolved Assessment and plan: Patient's blood pressure is now better controlled. Will continue her current medications. (2) Vertigo Current Visit: Yes Status: Acute Assessment and plan: Follow-up with neurology for further management (3) Alzheimer's dementia Current Visit: Yes Status: Chronic Assessment and plan: On Aricept Qualifiers: Alzheimer's disease onset: unspecified onset Dementia behavioral disturbance: without behavioral disturbance Qualified Code(s): G30.9 - Alzheimer's disease, unspecified; F02.80 - Dementia in other diseases classified elsewhere without behavioral disturbance (4) Anxiety Current Visit: Yes Status: Chronic Assessment and plan: Patient takes Xanax when necessary. It has been restarted. (5) Diastolic CHF Current Visit: Yes Status: Chronic Assessment and plan: Resume Lasix at discharge Qualifiers: Congestive heart failure chronicity: chronic Qualified Code(s): I50.32 - Chronic diastolic (congestive) heart failure (6) Frail elderly Current Visit: Yes Status: Acute Assessment and plan: Patient will be discharged to rehabilitation once she has been approved and insurance approval. (7) Hypothyroidism Current Visit: Yes Status: Acute Assessment and plan: On levothyroxine Qualifiers: Hypothyroidism type: other Qualified Code(s): E03.8 - Other specified hypothyroidism (8) Lightheadedness Current Visit: Yes Status: Acute Assessment and plan: Placement to skilled rehabilitation for rehabilitation. - Subjective Interval history: Patient is sitting up in and eating breakfast. Denies any complaints at this time. No dizziness reported. - Constitutional Vitals: Temp Pulse Resp BP Pulse Ox 97.8 F 68 16 153/67 94 L 11/26/16 10:50 11/26/16 10:50 11/26/16 10:50 11/26/16 10:50 11/26/16 10:50 General appearance: Present: cooperative, A&O X 1, pleasant, no acute distress - Neck Neck exam general surgery: Present: supple, trachea midline. Absent: lymphadenopathy - Cardiovascular Cardiovascular exam: Present: RRR, +S1, +S2. Absent: diastolic murmur, gallop, rubs, systolic murmur - GI/Abdominal GI/Abdominal exam: Present: normal bowel sounds, soft, no peritoneal signs. Absent: distended, tenderness - Extremities Exam Extremities exam: Present: warm, radial pulses palpable and symetrical. Absent : calf tenderness, cyanotic, pedal edema Additional comments: s/p left BKA - Neurological Exam Neurological exam: Present: alert, no focal deficits - Psychiatric Psychiatric exam: Present: normal affect, normal mood Internal Medicine: Result - Labs CBC & Chem 7: 11/23/16 04:21 11/23/16 04:21 - ABG Interpretation ABG results: PT/INR, D-dimer PT 11.1 Seconds (9.4-12.1) 11/22/16 13:50 Consult Discharge Plan - Plan Instructions: Donepezil (By mouth), Chronic Hypertension (DC) Additional Instructions: Follow-up with neurology in 1-2 weeks as scheduled Referrals: Stephanie Omer, NURSE ANESTHESIA PROGRAM DIRECTOR [Primary Care Provider] - (In 1-2 weeks) Aldo Carrasco DO [Partnered Physician] - 12/03/16 12:00 pm Prescriptions: Alprazolam [Xanax 0.5 MG Tablet] 0.5 mg PO QID PRN #15 tablet PRN Reason: Anxiety Amlodipine [Norvasc] 10 mg PO QAM #30 tablet Folic Acid 1 mg PO DAILY #30 tablet Furosemide [Lasix] 20 mg PO DAILY #30 tablet Vitamin B Complex/Vit C/Vit E [Stresstab] 1 each PO DAILY #30 tablet - Attending Attestation This document has been at least partially created by [employer] recognition technology by Dr. Rendon. Errors in grammar, wording or other phrases may exist. If errors are found after the documentation is signed, they will be addressed individually in the addendum section of this document when appropriate. Medical Decision Making - [facility] Narrative Medical decision making narrative: Low risk for complications - Lab Data Result diagrams: 11/23/16 04:21 11/23/16 04:21 Lab Results 11/23/16 11/23/16 11/24/16 Range/Units 04:21 04:21 11:39 WBC 6.3 (4.3-11.1) K/mcL RBC 4.17 (3.82-4.97) M/mcL Hgb 12.5 (11.5-15.4) g/dL Hct 36.5 (35.3-44.9) % MCV 87.5 (83.0-100.0) fL MCH 30.0 (28.0-33.3) pg MCHC 34.2 (31.6-35.5) g/dL RDW 12.4 (11.5-14.5) % Plt Count 129 L (140-400) K/mcL MPV 10.1 (9.4-12.4) fL Immature Gran % 0.2 (0-4) % Seg Neutrophils % 57.5 % Lymphocytes % 22.0 % Monocytes % 12.0 % Eosinophils % 7.5 % Basophils % 0.8 % Neutrophils # 3.6 (1.6-8.9) K/mcL Lymphocytes # 1.4 (0.6-4.6) K/mcL Monocytes # 0.8 (0.0-1.3) K/mcL Eosinophils # 0.5 (0.0-0.6) K/mcL Basophils # 0.1 (0.0-0.2) K/mcL Sodium 137 (136-145) mEq/L Potassium 4.0 D (3.5-4.5) mEq/L Chloride 111 H (98-109) mEq/L Carbon Dioxide 19 (19-29) mEq/L BUN 15 (7-20) mg/dL Creatinine 0.79 (0.57-1.11) mg/dL Est GFR ( Amer) > 60 (> 60) Est GFR (Non-Af Amer) > 60 (> 60) BUN/Creatinine Ratio 19 (6-26) Glucose 82 (70-99) mg/dL Calculated Osmolality 284 (280-300) Calcium 8.9 (8.6-10.8) mg/dL TSH 0.392 (0.350-4.840) mcIU/mL Urine Color Yellow (Yellow) Urine Clarity Clear (Clear) Urine pH 6.0 (5.0-8.0) pH Units Ur Specific [place] 1.021 (1.010-1.025) Urine Protein Negative (Neg-Trace) mg/dL Urine Glucose (UA) Normal (Normal) mg/dL Urine Ketones Trace H (Negative) mg/dL Urine Blood Negative (Negative) Urine Nitrite Negative (Negative) Urine Bilirubin Negative (Negative) Urine Urobilinogen Normal (Normal) mg/dL Ur Leukocyte Esterase Small H (Negative) Urine Microscopic RBC 3-5 H (0-3) per hpf Urine Microscopic WBC 5-15 H (0-3) per hpf Ur Squamous Epith Cells Many H (None-Few) per lpf Urine Bacteria None Seen (None-Few) per hpf Hyaline Casts None Seen (None-Few) per lpf Ur Culture Indicated? YES A (NO)
[2016-11-26 14:55] VITALS: BP 142/70
== END 2016-11-26 15:24 ==
LOC: EMEROO 12:54 → 3BNU 12:54 → OBSVTOIN 18:29 → INTOOBSV 18:29 → SUATTDRO 18:29 → 3BNU 18:59
PROVIDERS: ADMIT Internal Medicine; ATTEND Internal Medicine

== ENCOUNTER 2017-02-11 20:18 | Observation (INO) ==
[2017-02-11] MEDS ORDERED: 0.9 % Sodium Chloride 500 ML IVC ONE (20:28)
--- NOTE | 2017-02-11 21:30 | Emergency Department Note ---
Disposition Clinical Impression: Bradycardia Hypothyroidism Qualifiers: Hypothyroidism type: unspecified Qualified Code(s): E03.9 - Hypothyroidism, unspecified Hypothermia Qualifiers: Encounter type: initial encounter Qualified Code(s): T68.XXXA - Hypothermia, initial encounter Disposition: Admitted As Inpatient Condition: Undetermined Referrals: NO,PCP [Primary Care Provider] - Forms: ED Satisfaction Letter Time of Disposition: 23:34 General Adult HPI - General Chief complaint: ED Altered Mental Status Stated complaint: weakness, AMS Time Seen by Provider: 02/11/17 20:28 Source: EMS Mode of arrival: EMS Limitations: altered mental status Nursing Notes Reviewed: Yes Vital Signs Reviewed: Yes - History of Present Illness HPI Narrative: 86-year-old female with history of advanced dementia arrives to [facility] emergency department from a nursing facility from which the patient lives. The patient had an apparent small fall over the past 24 hours with history of recurrent falls over the past 2-3 weeks. The patient is on Plavix. The patient was brought to the emergency department for bradycardia, mild hypotension, slight alteration in mentation. The nursing facility noted that the patient's heart rate was in the 30s decided to send the patient to the emergency department. The patient arrives to the emergency department with a heart rate in the 50s. The patient is answering questions and following commands appropriately. The patient's daughter states the patient is a current DNR CC arrest with a DO NOT INTUBATE. The daughter also states that the patient had a fall roughly 3 weeks ago where she was noted to have intracranial hemorrhage. At that time it was elected not to have the patient go to [facility] for further evaluation given the patient's advanced dementia. The patient's daughter also states that over the past 3 days the mother has been experiencing darker colored urine that is slightly malodorous. The patient denies any complaints at this time. The patient has obvious ecchymosis around her left orbit. Pain Scale: 0 - Related Data Home Medications Medication Instructions Recorded Confirmed Isosorbide MONOnitrate (24 HR) 30 mg PO QPM 07/03/15 11/22/16 [Imdur] Levothyroxine [Synthroid] 100 mcg PO QAM 07/03/15 11/22/16 Metoprolol [Lopressor] 12.5 mg PO BID 07/03/15 11/22/16 Clopidogrel [Plavix] 75 mg PO QAM 02/09/16 11/22/16 Donepezil [Aricept] 5 mg PO DAILY 11/22/16 11/22/16 Pantoprazole Sodium [Protonix] 20 mg PO BID 11/22/16 11/22/16 Previous Rx's Medication Instructions Recorded Docusate [Colace] 100 mg PO BID #20 capsule 08/31/16 Polyethylene Glycol 3350 [MiraLAX] 17 gm PO DAILY #10 powd.pack 08/31/16 Amlodipine [Norvasc] 10 mg PO QAM #30 tablet 11/25/16 Folic Acid 1 mg PO DAILY #30 tablet 11/25/16 Furosemide [Lasix] 20 mg PO DAILY #30 tablet 11/25/16 Vitamin B Complex/Vit C/Vit E 1 each PO DAILY #30 tablet 11/25/16 [Stresstab] Alprazolam [Xanax 0.5 MG Tablet] 0.5 mg PO QID #20 tablet 11/26/16 Alprazolam [Xanax 1 MG Tablet] 1 mg PO TID PRN #10 tablet 01/19/17 HYDROcodone/Acet 5/325 mg [[place] 1 tab PO Q6H PRN #10 tab 01/19/17 5-325 mg] Allergies Allergy/AdvReac Type Severity Reaction Status Date / Time No Known Allergies Allergy Verified 02/11/17 20:34 Constitutional: Reports: weakness. Denies: fever, chills, weight change Eyes: Denies: eye pain, eye discharge, vision change ENT ED: Denies: ear pain, throat pain, dental pain, hearing loss, epistaxis, congestion, dysphagia Cardiovascular: Denies: chest pain, palpitations, dyspnea on exertion, edema, syncope Respiratory: Denies: cough, dyspnea, wheezes, hemoptysis, stridor Gastrointestinal: Denies: abdominal pain, nausea, vomiting, diarrhea, constipation, hematemesis, melena, hematochezia Musculoskeletal: Denies: back pain, neck pain, arthralgia, myalgia Integumentary: Denies: rash, abrasion, lesions Past Medical History - Past Medical History Attestation: Yes The following information was validated with the patient. Source: patient Medical history: Reports: CHF, coronary artery disease, DVT, hypertension, TIA Surgical history: Reports: cholecystectomy, hysterectomy, other Psychiatric history: Reports: anxiety, depression - Social History Smoking Status: Never smoker Smokeless Tobacco Status: No Alcohol use: Reports: none Drug use: Reports: none Physical Exam - General General appearance: alert, in no apparent distress, other (Patient is somnolent but easily arousable and answers questions appropriately.) - Head Head exam: other (Periorbital ecchymosis around the left orbit) - Eye Eye exam: Present: PERRL, EOMI - ENT ENT exam: normal exam, normal oropharynx, mucous membranes moist - Neck Neck exam: Present: normal inspection, full ROM, trachea midline - Chest Chest inspection: Present: normal inspection, symmetric chest wall rise - Respiratory Respiratory exam: Present: normal lung sounds bilaterally - Cardiovascular Cardiovascular exam: Present: regular rate, normal rhythm, normal heart sounds - Abdominal Exam Abdominal exam: Present: soft, Non-Tender. Absent: tenderness, distention, guarding, rebound, rigidity - Extremities Exam Extremities exam: Present: normal inspection, full ROM. Absent: tenderness, pedal edema - Back Exam Back exam: Present: normal inspection, full ROM. Absent: tenderness - Neurological Exam Neurological exam: Present: alert, CN II-XII intact, other (Oriented to person) Course Vital Signs Temperature 94.5 F L 02/11/17 20:21 Pulse Rate 62 02/11/17 20:21 Respiratory Rate 14 02/11/17 20:21 Blood Pressure 99/58 02/11/17 20:21 O2 Sat by Pulse Oximetry 94 02/11/17 20:21 Temperature 95.1 F L 02/11/17 22:22 Pulse Rate 58 02/11/17 22:22 Respiratory Rate 12 02/11/17 22:22 Blood Pressure 98/78 02/11/17 22:22 O2 Sat by Pulse Oximetry 95 02/11/17 22:22 Oxygen Delivery Oxygen Delivery Nasal Cannula Medical Decision Making - [facility] Narrative Medical decision making narrative: Dr. Bianchi accepts - Lab Data Lab results reviewed: Yes I reviewed the patient's lab results. Result diagrams: 02/11/17 21:10 02/11/17 21:10 Lab Results 02/11/17 02/11/17 02/11/17 Range/Units 21:10 21:10 21:10 WBC 6.1 (4.3-11.1) K/mcL RBC 3.47 L (3.82-4.97) M/mcL Hgb 10.6 L (11.5-15.4) g/dL Hct 31.5 L (35.3-44.9) % MCV 90.8 (83.0-100.0) fL MCH 30.5 (28.0-33.3) pg MCHC 33.7 (31.6-35.5) g/dL RDW 13.8 (11.5-14.5) % Plt Count 107 L (140-400) K/mcL MPV 10.4 (9.4-12.4) fL Immature Gran % 0.3 (0-4) % Seg Neutrophils % 62.3 % Lymphocytes % 22.8 % Monocytes % 8.0 % Eosinophils % 5.9 % Basophils % 0.7 % Neutrophils # 3.8 (1.6-8.9) K/mcL Lymphocytes # 1.4 (0.6-4.6) K/mcL Monocytes # 0.5 (0.0-1.3) K/mcL Eosinophils # 0.4 (0.0-0.6) K/mcL Basophils # 0.0 (0.0-0.2) K/mcL Immature Plt Fraction 5.4 (1.1-6.1) % Sodium 143 (136-145) mEq/L Potassium 3.9 (3.5-4.5) mEq/L Chloride 110 H (98-109) mEq/L Carbon Dioxide 28 (19-29) mEq/L BUN 20 (7-20) mg/dL Creatinine 0.84 (0.57-1.11) mg/dL Est GFR ( Amer) > 60 (> 60) Est GFR (Non-Af Amer) > 60 (> 60) BUN/Creatinine Ratio 24 (6-26) Glucose 97 (70-99) mg/dL Calculated Osmolality 299 (280-300) Calcium 8.8 (8.6-10.8) mg/dL Total Bilirubin 0.4 (0.2-1.2) mg/dL AST 17 (5-34) Units/L ALT 13 (0-55) Units/L Alkaline Phosphatase 106 (38-126) Units/L Troponin I 0.03 (0-0.03) ng/mL Serum Total Protein 5.7 L (6.0-8.3) g/dL Albumin 2.9 L (3.5-5.0) g/dL Globulin 2.8 (2.4-3.5) g/dL Albumin/Globulin Ratio 1.0 L (1.1-2.2) TSH 46.082 H (0.350-4.840) mcIU/mL Urine Color (Yellow) Urine Clarity (Clear) Urine pH (5.0-8.0) pH Units Ur Specific [place] (1.010-1.025) Urine Protein (Neg-Trace) mg/dL Urine Glucose (UA) (Normal) mg/dL Urine Ketones (Negative) mg/dL Urine Blood (Negative) Urine Nitrite (Negative) Urine Bilirubin (Negative) Urine Urobilinogen (Normal) mg/dL Ur Leukocyte Esterase (Negative) Ur Culture Indicated? (NO) 02/11/17 Range/Units 22:07 WBC (4.3-11.1) K/mcL RBC (3.82-4.97) M/mcL Hgb (11.5-15.4) g/dL Hct (35.3-44.9) % MCV (83.0-100.0) fL MCH (28.0-33.3) pg MCHC (31.6-35.5) g/dL RDW (11.5-14.5) % Plt Count (140-400) K/mcL MPV (9.4-12.4) fL Immature Gran % (0-4) % Seg Neutrophils % % Lymphocytes % % Monocytes % % Eosinophils % % Basophils % % Neutrophils # (1.6-8.9) K/mcL Lymphocytes # (0.6-4.6) K/mcL Monocytes # (0.0-1.3) K/mcL Eosinophils # (0.0-0.6) K/mcL Basophils # (0.0-0.2) K/mcL Immature Plt Fraction (1.1-6.1) % Sodium (136-145) mEq/L Potassium (3.5-4.5) mEq/L Chloride (98-109) mEq/L Carbon Dioxide (19-29) mEq/L BUN (7-20) mg/dL Creatinine (0.57-1.11) mg/dL Est GFR ( Amer) (> 60) Est GFR (Non-Af Amer) (> 60) BUN/Creatinine Ratio (6-26) Glucose (70-99) mg/dL Calculated Osmolality (280-300) Calcium (8.6-10.8) mg/dL Total Bilirubin (0.2-1.2) mg/dL AST (5-34) Units/L ALT (0-55) Units/L Alkaline Phosphatase (38-126) Units/L Troponin I (0-0.03) ng/mL Serum Total Protein (6.0-8.3) g/dL Albumin (3.5-5.0) g/dL Globulin (2.4-3.5) g/dL Albumin/Globulin Ratio (1.1-2.2) TSH (0.350-4.840) mcIU/mL Urine Color Yellow (Yellow) Urine Clarity Clear (Clear) Urine pH 5.0 (5.0-8.0) pH Units Ur Specific [place] 1.020 (1.010-1.025) Urine Protein Negative (Neg-Trace) mg/dL Urine Glucose (UA) Normal (Normal) mg/dL Urine Ketones Negative (Negative) mg/dL Urine Blood Negative (Negative) Urine Nitrite Negative (Negative) Urine Bilirubin Negative (Negative) Urine Urobilinogen Normal (Normal) mg/dL Ur Leukocyte Esterase Negative (Negative) Ur Culture Indicated? NO (NO) - Radiology Data Radiology results reviewed: Yes I reviewed the patient's radiology results. - EKG Data EKG #1 EKG attestation: Yes I reviewed and interpreted this EKG. EKG results narrative: Heart rate 57 bpm. QTc 456 ms. Normal axis. Normal sinus rhythm with bigeminal-like pattern noted. No ST elevation or ST depression noted.
[2017-02-11 21:33] LABS: Hematocrit 31.5 % (35.3-44.9); Hemoglobin 10.6 g/dL (11.5-15.4); Red Blood Count 3.47 M/mcL (3.82-4.97)
[2017-02-11 21:34] LABS: Mean Corpuscular HGB Conc 33.7 g/dL (31.6-35.5); Mean Corpuscular Hemoglobin 30.5 pg (28.0-33.3); Mean Corpuscular Volume 90.8 fL (83.0-100.0); Mean Platelet Volume 10.4 fL (9.4-12.4); Platelet Count 107 K/mcL (140-400); Red Cell Distribution Width 13.8 % (11.5-14.5)
[2017-02-11 21:35] LABS: Immature Granulocytes % 0.3 % (0-4)
--- NOTE | 2017-02-11 21:35 | Emergency Department Note ---
START Narrative - START START: I examined this patient and my medical decision-making was reviewed with the CODING DIRECTOR/PA/Advanced Practice Nurse/Resident Physician. I agree with the documented findings, disposition and treatment plan as described except to the extent set forth below. ED attending note: Patient seen with emergency medicine resident Dr. Smith. Please see a copy of his note for details of the H&P, evaluation, management and disposition of this patient. We independently had [id number] contact with the patient Briefly: A 86-year-old female by EMS from halfway facility due to decreased mental status and symptomatic bradycardia. Patient's power of tax associate attorney family member is on scene now. Patient is on Plavix she has had falls within the past month or so which showed a small bleed which was worked up at [facility]. The family member stated she did not want "heroic or aggressive efforts ". And no transfer was made at that time. Patient had a fall today on no new signs of trauma. Patient has had decreased mental status now for several weeks. Family members concerned about decreasing urine output and increased and darkening color. Patient be worked up for source of infection CT scan to assess for new bleeding. And then we will discuss with family members forced administers she would prefer would be okay with. Disposition pending.
[2017-02-11 21:39] LABS: BUN/Creatinine Ratio 24 (6-26); Blood Urea Nitrogen 20 mg/dL (7-20); Carbon Dioxide 28 mEq/L (19-29); Chloride 110 mEq/L (98-109); Potassium 3.9 mEq/L (3.5-4.5); Sodium 143 mEq/L (136-145); eGFR For African Americans > 60 (> 60); eGFR For Non-African Americans > 60 (> 60)
[2017-02-11 21:40] LABS: Alanine Aminotransferase 13 Units/L (0-55); Albumin 2.9 g/dL (3.5-5.0); Alkaline Phosphatase 106 Units/L (38-126); Aspartate Amino Transferase 17 Units/L (5-34); Bilirubin,Total 0.4 mg/dL (0.2-1.2); Calcium 8.8 mg/dL (8.6-10.8); Globulin 2.8 g/dL (2.4-3.5); Glucose 97 mg/dL (70-99); Osmolality,Calculated 299 (280-300); Total Protein 5.7 g/dL (6.0-8.3)
[2017-02-11 21:49] LABS: Basophils % 0.7 %; Eosinophils # 0.4 K/mcL (0.0-0.6); Eosinophils % 5.9 %; Immature Platelets 5.4 % (1.1-6.1); Lymphocytes # 1.4 K/mcL (0.6-4.6); Lymphocytes % 22.8 %; Monocytes # 0.5 K/mcL (0.0-1.3); Neutrophils # 3.8 K/mcL (1.6-8.9); Segmented Neutrophils % 62.3 %
[2017-02-11 22:13] LABS: Bilirubin,Urine Negative (Negative); Blood,Urine Negative (Negative); Clarity,Urine Clear (Clear); Color,Urine Yellow (Yellow); Glucose,Urine (UA) Normal (Normal); Ketones,Urine Negative (Negative); Leukocyte Esterase,Urine Negative (Negative); Nitrite,Urine Negative (Negative); Protein,Urine Negative (Neg-Trace); Urobilinogen,Urine Normal (Normal)
[2017-02-11 23:16] LABS: Thyroid Stimulating Hormone 46.082 mcIU/mL (0.350-4.840)
--- NOTE | 2017-02-12 03:31 | Internal Med History&Physical ---
Date of Encounter: 02/12/17 Time of Encounter: 03:30 Assessment and Plan (1) Hypothyroidism Status: Acute Patient is known to have hypothyroidism and is on Synthroid 100 g a day. TSH is a significantly elevated at 46. Free T4 and T3 levels requested and pending. Increase the dose of 5 Synthroid 112 g a day. I suspect her bradycardia and hypothermia possibly related to hypothyroidism. Qualifiers: Hypothyroidism type: unspecified Qualified Code(s): E03.9 - Hypothyroidism , unspecified (2) Bradycardia Status: Acute Possibly related to hypo-thyroidism and beta-blockers. Increase the dose of Synthroid and hold metoprolol. (3) Hypothermia Status: Acute Likely due to hypothyroidism. Increase the dose of synthroid. Pt improved Qualifiers: Encounter type: initial encounter Qualified Code(s): T68.XXXA - Hypothermia , initial encounter (4) Recurrent falls Status: Chronic PT eval (5) Subdural hematoma Status: Resolved Recent h/o subdural hematoma - Resolved (6) Dementia Status: Acute Supportive care. Continue home meds Qualifiers: Dementia type: unspecified type Dementia behavioral disturbance: without behavioral disturbance Qualified Code(s): F03.90 - Unspecified dementia without behavioral disturbance (7) Diastolic CHF Status: Chronic [place] home medications Qualifiers: Congestive heart failure chronicity: chronic Qualified Code(s): I50.32 - Chronic diastolic (congestive) heart failure Internal Medicine - H&P: HPI Chief complaint: Bradycardia Admitted From: Emergency Dept Plans for Post Hospital Care: Transfer [facility] Facility History of present illness: Ms. Mendez is a 86 year old female with history of diastolic CHF (Previous LVEF: 70-75%), coronary artery disease, hypothyroidism, hypertension, and advanced dementia. He does not have a new clinical details. I reviewed the records from the emergency department. Pt apparently had frequent falls at the senior living - patient apparently had recent subdural hematoma. The nursing facility noted that the patient's heart rate was in the 30s and transferred the patient to the emergency department. In the emergency department pts heart rate was in the 50s and temperature was 94.5F. She was given a normal saline fusion and admitted to the the hospitalist service for further management. Patient is confused and is not able to give significant clinical details. She denies pain. Past medical history, social history, family history could not be reviewed due to patients dementia. Past Med Surg Social Fam HX - Past Medical History Medical history: CHF, coronary artery disease, DVT, hypertension, TIA Psychiatric history: anxiety, depression - Past Surgical History Surgical History: cholecystectomy, hysterectomy, other - Social History Smoking Status: Never smoker Smokeless Tobacco Status: No Alcohol use: none Drug use: none - Family History Father Hx Family Cardiac Disorders: Yes Internal Medicine - H&P: Meds Isosorbide MONOnitrate (24 HR) [Imdur] 30 mg PO DAILY 07/03/15 [History] Docusate [Colace] 100 mg PO BID #20 capsule 08/31/16 [Rx] Pantoprazole Sodium [Protonix] 20 mg PO BID 11/22/16 [History] Furosemide [Lasix] 20 mg PO DAILY #30 tablet 11/25/16 [Rx] Vitamin B Complex/Vit C/Vit E [Stresstab] 1 each PO DAILY #30 tablet 11/25/16 [ Rx] HYDROcodone/Acet 5/325 mg [[place] 5-325 mg] 1 tab PO Q6H PRN #10 tab 01/19/17 [Rx ] Amlodipine Besylate 10 mg PO DAILY 02/12/17 [History] Folic Acid 1 mg PO DAILY 02/12/17 [History] Polyethylene Glycol 3350 [Smoothlax] 17 gm PO DAILY 02/12/17 [History] RisperiDONE [Risperidone] 1 mg PO BID 02/12/17 [History] Vit C/E/Zn/Coppr/Lutein/Zeaxan [Preservision Areds 2 Softgel] 1 cap PO BID 02/12 [History] Alprazolam [Xanax 0.5 MG Tablet] 0.5 mg PO QID PRN #30 tablet 02/14/17 [Rx] Levothyroxine [Synthroid] 112 mcg PO DAILY@0630 tablet 02/14/17 [Rx] Allergies No Known Allergies Allergy (Verified 02/11/17 20:34) ROS unobtainable: due to mental status - Constitutional Vitals: Temp Pulse Resp BP Pulse Ox 97.8 F 60 14 125/60 94 02/12/17 00:47 02/12/17 01:37 02/12/17 00:47 02/12/17 00:47 02/12/17 01:31 Exam: General: Confused. Not in acute distress at the time of my evaluation HEENT: Oral mucosa is moist. No conjunctival palor or scleral icterus Neck: No obvious neck swellings Lungs: Clear to auscultation Cardiac: Irregular rhythm. Systolic murmur present Abdomen: Soft, non tender. Bowel sounds present Neurological: Confused. able to spontaneously move all the extremities Psych: Not aggressive or agitated at the time of my evaluation Extremities: s/p Left BKA. Skin: No generalized rash Internal Med - H&P Results - Labs CBC & Chem 7: 02/14/17 05:10 02/14/17 05:10 - EKG Data -: EKG Interpreted by Myself - EKG Data EKG comments: Ventricular ectopics / bigeminy. First degree AV block 02/12/17 05:58 02/12/17 05:58 - Impressions ITS Impressions Head CT 02/11/17 20:28 IMPRESSION: 1. No acute intracranial abnormality. 2. Interval resolution of the previously identified small right subdural hemorrhage. D/ / Robson Mendez MD / Robson Mendez MD Interpreting Provider: Robson Mendez MD Chest X-Ray 02/11/17 22:33 IMPRESSION: 1. No acute cardiopulmonary abnormality within limits of suboptimal positioning. 2. Large hiatal hernia. D/ / Low James MD / Low James MD Interpreting Provider: Low James MD
[2017-02-12] MEDS ORDERED: *HR* LORazepam 2 MG/ML VIAL IVP ONE (04:55)
[2017-02-12] MEDS ORDERED: Naloxone 0.4 MG/ML INJ IVP PRN (05:29)
[2017-02-12] MEDS: Isosorbide MONOnitrate (24 HR) 30 MG TAB.ER.24H PO SCH ×3 (05:59→17:15)
[2017-02-12] MEDS ORDERED: *HR* Heparin 5,000 UNIT/ML VIAL SQ SCH (06:00)
[2017-02-12 06:10] LABS: Triiodothyronine (T3) Free 1.88 pg/mL (1.71-3.71)
[2017-02-12] MEDS ORDERED: Levothyroxine 25 MCG TABLET PO SCH (06:30)
[2017-02-12] MEDS: Vitamin B Complex/Vit C/Vit E 1 EACH TABLET PO SCH (07:55)
[2017-02-12] MEDS: ALPRAZolam 0.5 MG TABLET PO SCH ×4 (07:56→19:55)
--- NOTE | 2017-02-12 11:06 | Event Note ---
Date of Encounter: 02/12/17 Time of Encounter: 11:01 Patient is an 86y/o female who was transferred from [facility] facility for management of bradycardia. Patient has history of advanced dementia and not able to provide much history. She is further admitted for management of bradycardia. Patient seen and examined, resting in bed and in no distress. Noted to have elevated TSH consistent with hypothyroidism. Started on Levothyroxine. Noted to be hypothermic with no clear signs of infectious etiology. Will continue to closely monitor and place warming blanket. Patient asymptomatic at this time. Able to tolerate PO intake.
[2017-02-13] MEDS ORDERED: *HR* LORazepam 2 MG/ML VIAL IVP ONE (03:37)
[2017-02-13 05:13] LABS: Basophils # 0.1 K/mcL (0.0-0.2); Basophils % 0.8 %; Eosinophils # 0.3 K/mcL (0.0-0.6); Eosinophils % 4.3 %; Hematocrit 36.1 % (35.3-44.9); Hemoglobin 12.1 g/dL (11.5-15.4); Immature Granulocytes % 0.6 % (0-4); Lymphocytes # 1.5 K/mcL (0.6-4.6); Lymphocytes % 22.1 %; Mean Corpuscular HGB Conc 33.5 g/dL (31.6-35.5); Mean Corpuscular Hemoglobin 30.2 pg (28.0-33.3); Mean Platelet Volume 10.4 fL (9.4-12.4); Monocytes # 0.6 K/mcL (0.0-1.3); Monocytes % 9.3 %; Neutrophils # 4.1 K/mcL (1.6-8.9); Platelet Count 108 K/mcL (140-400); Red Blood Count 4.01 M/mcL (3.82-4.97); Red Cell Distribution Width 13.7 % (11.5-14.5); Segmented Neutrophils % 62.9 %
[2017-02-13 05:26] LABS: BUN/Creatinine Ratio 13 (6-26); Blood Urea Nitrogen 11 mg/dL (7-20); Calcium 9.6 mg/dL (8.6-10.8); Carbon Dioxide 25 mEq/L (19-29); Chloride 106 mEq/L (98-109); Glucose 81 mg/dL (70-99); Magnesium 1.8 mg/dL (1.6-2.6); Osmolality,Calculated 292 (280-300); Phosphorous 2.6 mg/dL (2.3-4.7); Potassium 3.7 mEq/L (3.5-4.5); Sodium 142 mEq/L (136-145); eGFR For African Americans > 60 (> 60); eGFR For Non-African Americans > 60 (> 60)
[2017-02-13] MEDS: ALPRAZolam 0.5 MG TABLET PO SCH ×4 (08:57→21:18)
[2017-02-13] MEDS: Vitamin B Complex/Vit C/Vit E 1 EACH TABLET PO SCH (08:57)
--- NOTE | 2017-02-13 14:24 | Internal Med Progress Note ---
Date of Encounter: 02/13/17 Time of Encounter: 14:22 - Assessment and plan (1) Bradycardia Current Visit: No Status: Acute Assessment and plan: Resolved likely secondary to hypothyroidism continue levothyroxine continue tele monitoring discharge pending placement (2) Hypothyroidism Current Visit: Yes Status: Acute Assessment and plan: started levothyroxine, will continue Qualifiers: Hypothyroidism type: unspecified Qualified Code(s): E03.9 - Hypothyroidism , unspecified (3) Anxiety Current Visit: No Status: Chronic Assessment and plan: continue home meds (4) Diastolic CHF Current Visit: No Status: Chronic Assessment and plan: NOt in acute exacerbation continue home meds Qualifiers: Congestive heart failure chronicity: chronic Qualified Code(s): I50.32 - Chronic diastolic (congestive) heart failure (5) Hypothermia Current Visit: Yes Status: Resolved Assessment and plan: resolved Qualifiers: Encounter type: initial encounter Qualified Code(s): T68.XXXA - Hypothermia , initial encounter (6) Status post below knee amputation of left lower extremity Current Visit: No Status: Chronic (7) DVT prophylaxis Current Visit: No Status: Acute Assessment and plan: Heparin SQ - Subjective Interval history: Patient seen and examined at bedside. Resting comfortably in bed. Bradycardia resolved. Mental status at baseline. Discharge pending PT and social services analyst eval. - Constitutional Vitals: Temp Pulse Resp BP Pulse Ox 97.6 F 68 18 145/71 95 02/13/17 10:21 02/13/17 10:21 02/13/17 10:21 02/13/17 10:21 02/13/17 10:21 General appearance: Present: A&O X 1, no acute distress - Head Head exam: Present: atraumatic, normocephalic - Eye Eye exam: Present: conjuntiva pink, sclera anicteric - Respiratory Respiratory exam: Present: CTAB. Absent: accessory muscle use, rales, rhonchi, wheezes - Cardiovascular Cardiovascular exam: Present: RRR, +S1, +S2. Absent: diastolic murmur, gallop, rubs, systolic murmur - GI/Abdominal GI/Abdominal exam: Present: normal bowel sounds, soft, no peritoneal signs. Absent: distended, tenderness - Extremities Exam Extremities exam: Present: warm, radial pulses palpable and symetrical. Absent : calf tenderness, cyanotic, pedal edema Additional comments: left BKA - Neurological Exam Neurological exam: Present: alert - Psychiatric Psychiatric exam: Present: normal affect, normal mood Internal Medicine: Result - Labs CBC & Chem 7: 02/13/17 04:44 02/13/17 04:44 Labs: Short CBC 02/13/17 Range/Units 04:44 WBC 6.6 (4.3-11.1) K/mcL Hgb 12.1 D (11.5-15.4) g/dL Hct 36.1 (35.3-44.9) % Plt Count 108 L (140-400) K/mcL Neutrophils # 4.1 (1.6-8.9) K/mcL BMP 02/13/17 04:44 Sodium 142 Potassium 3.7 Chloride 106 Carbon Dioxide 25 BUN 11 Creatinine 0.84 Glucose 81 Calcium 9.6 Consult Discharge Plan - Plan Referrals: NO,PCP [Primary Care Provider] -
[2017-02-13] MEDS: Isosorbide MONOnitrate (24 HR) 30 MG TAB.ER.24H PO SCH (18:19)
[2017-02-13] MEDS: *HR* Heparin 5,000 UNIT/ML VIAL SQ SCH (18:19)
[2017-02-14] MEDS ORDERED: Acetaminophen 325 MG TABLET PO PRN (01:20)
[2017-02-14 05:39] LABS: Basophils # 0.1 K/mcL (0.0-0.2); Basophils % 0.7 %; Eosinophils # 0.2 K/mcL (0.0-0.6); Eosinophils % 3.4 %; Hematocrit 37.5 % (35.3-44.9); Hemoglobin 12.7 g/dL (11.5-15.4); Immature Granulocytes % 0.3 % (0-4); Lymphocytes # 1.7 K/mcL (0.6-4.6); Lymphocytes % 24.3 %; Mean Corpuscular HGB Conc 33.9 g/dL (31.6-35.5); Mean Corpuscular Hemoglobin 30.1 pg (28.0-33.3); Mean Corpuscular Volume 88.9 fL (83.0-100.0); Mean Platelet Volume 10.4 fL (9.4-12.4); Monocytes # 0.7 K/mcL (0.0-1.3); Monocytes % 9.9 %; Neutrophils # 4.4 K/mcL (1.6-8.9); Platelet Count 134 K/mcL (140-400); Red Blood Count 4.22 M/mcL (3.82-4.97); Red Cell Distribution Width 13.6 % (11.5-14.5); Segmented Neutrophils % 61.4 %
[2017-02-14 05:53] LABS: BUN/Creatinine Ratio 18 (6-26); Blood Urea Nitrogen 15 mg/dL (7-20); Calcium 9.8 mg/dL (8.6-10.8); Carbon Dioxide 21 mEq/L (19-29); Chloride 105 mEq/L (98-109); Glucose 84 mg/dL (70-99); Magnesium 1.8 mg/dL (1.6-2.6); Osmolality,Calculated 286 (280-300); Phosphorous 3.1 mg/dL (2.3-4.7); Potassium 3.9 mEq/L (3.5-4.5); Sodium 138 mEq/L (136-145); eGFR For African Americans > 60 (> 60); eGFR For Non-African Americans > 60 (> 60)
[2017-02-14] MEDS: *HR* Heparin 5,000 UNIT/ML VIAL SQ SCH (06:06)
[2017-02-14] MEDS: Vitamin B Complex/Vit C/Vit E 1 EACH TABLET PO SCH (08:20)
[2017-02-14] MEDS: ALPRAZolam 0.5 MG TABLET PO SCH ×2 (08:21→12:34)
--- NOTE | 2017-02-14 08:58 | Electrocardiograph Report ---
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
--- NOTE | 2017-02-14 08:58 | Electrocardiograph Report ---
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
--- NOTE | 2017-02-14 10:16 | Discharge Summary ---
Date of Encounter: 02/14/17 Time of Encounter: 09:30 - Discharge Diagnosis (1) Bradycardia Priority: Primary Status: Resolved (2) Hypothyroidism Priority: Secondary Status: Acute Qualifiers: Hypothyroidism type: unspecified Qualified Code(s): E03.9 - Hypothyroidism , unspecified (3) Anxiety Priority: Secondary Status: Chronic (4) Diastolic CHF Priority: Secondary Status: Chronic Qualifiers: Congestive heart failure chronicity: chronic Qualified Code(s): I50.32 - Chronic diastolic (congestive) heart failure (5) Hypothermia Priority: Secondary Status: Resolved Qualifiers: Encounter type: initial encounter Qualified Code(s): T68.XXXA - Hypothermia , initial encounter (6) Status post below knee amputation of left lower extremity Priority: Secondary Status: Chronic (7) DVT prophylaxis Priority: Secondary Status: Acute - Discharge Medications Prescriptions: Alprazolam [Xanax 0.5 MG Tablet] 0.5 mg PO QID PRN #30 tablet PRN Reason: Anxiety Home Medications: Isosorbide MONOnitrate (24 HR) [Imdur] 30 mg PO DAILY 07/03/15 [History] Docusate [Colace] 100 mg PO BID #20 capsule 08/31/16 [Rx] Pantoprazole Sodium [Protonix] 20 mg PO BID 11/22/16 [History] Furosemide [Lasix] 20 mg PO DAILY #30 tablet 11/25/16 [Rx] Vitamin B Complex/Vit C/Vit E [Stresstab] 1 each PO DAILY #30 tablet 11/25/16 [ Rx] HYDROcodone/Acet 5/325 mg [[place] 5-325 mg] 1 tab PO Q6H PRN #10 tab 01/19/17 [Rx ] Amlodipine Besylate 10 mg PO DAILY 02/12/17 [History] Folic Acid 1 mg PO DAILY 02/12/17 [History] Polyethylene Glycol 3350 [Smoothlax] 17 gm PO DAILY 02/12/17 [History] RisperiDONE [Risperidone] 1 mg PO BID 02/12/17 [History] Vit C/E/Zn/Coppr/Lutein/Zeaxan [Preservision Areds 2 Softgel] 1 cap PO BID 02/12 [History] Alprazolam [Xanax 0.5 MG Tablet] 0.5 mg PO QID PRN #30 tablet 02/14/17 [Rx] Levothyroxine [Synthroid] 112 mcg PO DAILY@0630 tablet 02/14/17 [Rx] Allergies/Adverse Reactions: Allergies No Known Allergies Allergy (Verified 02/11/17 20:34) Procedures/tests Complete & Pending: Procedures Performed prior 72 hours Category Date Time Status ECG 12 lead ECG [ECG] Routine Y 02/11/17 21:21 Completed Date of admission: 02/11/17 23:58 Primary care physician: PCP NO Consults: 02/12/17 01:02 Consult to Pulp Maker [CONS] Routine Reason for SW Consult: Return back to [facility]. 02/12/17 10:07 Consult to Occupational Therapy [CONS] Routine Comment: Evaluate, develop and implement POC Consult to Physical Therapy [CONS] Routine Comment: Evaluate, develop and implement POC Discharging clinician: Dinah Rosenthal Anticipated date of discharge: 02/14/17 - Patient Status Disposition: Transfer SNF Condition: Fair Functional capacity at discharge: wheelchair bound Overall status at discharge: patient is back to baseline - Discharge Instructions Follow Up With: NO,PCP [Primary Care Provider] - Additional Instructions: Please follow up with your primary care physician within one week after your discharge from the hospital. Your home medications have been readjusted due to your presenting symptoms when you came to the hospital. Your home dose of Metoprolol has been discontinued. Hold Amlodipine if SBP<140 Use Lasix as needed for signs of volume overload (worsening of lower extremity edema, shortness of breath) Your home dose of Xanax has been changed to as needed rather than scheduled dose Your home dose of Levothyroxine was increased. Take this medication as prescribed. Continue all your other home medications as prescribed by your primary care physician and inform your primary care physician about the above medication changes. - Diet and Activity Activity: as per physical therapy Diet: advance to your usual diet Hospital course: Ms. Mendez is a 86 year old female with PMH of CHF, CAD, Hypothyroidism, hypertension, advanced dementia, s/p lt BKA who was admitted for bradycardia. Upon arrival patient was noted to be altered and have elevated TSH. Her home medications were reconciled and the levothyroxine dose was increased. Her home dose of risperidal, metoprolol, lasix, amlodipine were all placed on hold. She responded to therapy. At this time her bradycardia has resolved. Mental status is back to baseline. She is from a [facility] and will likely be discharged to [facility]. PT has been working with the patient. Patient is hemodynamically stable and will be discharged to home with follow up with PCP. - Time Spent with Patient Total time spent providing and/or coordinating discharge services: Greater than 30 minutes - Constitutional Vitals: Temp Pulse Resp BP Pulse Ox 97.8 F 66 18 152/77 93 02/14/17 08:00 02/14/17 08:00 02/14/17 08:00 02/14/17 08:00 02/14/17 08:00 General appearance: Present: A&O X 1, no acute distress - Head Head exam: Present: atraumatic, normocephalic - Eye Eye exam: Present: normal appearance, conjuntiva pink, sclera anicteric - Respiratory Respiratory exam: Present: CTAB. Absent: accessory muscle use, rales, rhonchi, wheezes - Cardiovascular Cardiovascular exam: Present: RRR, +S1, +S2. Absent: diastolic murmur, gallop, rubs, systolic murmur - GI/Abdominal GI/Abdominal exam: Present: normal bowel sounds, soft, no peritoneal signs. Absent: distended, tenderness - Extremities Exam Extremities exam: Present: warm, radial pulses palpable and symetrical. Absent : calf tenderness, cyanotic, pedal edema Additional comments: left BKA - Neurological Exam Neurological exam: Present: alert - Psychiatric Psychiatric exam: Present: normal affect, normal mood
--- NOTE | 2017-02-14 10:27 | Physician Discharge Referral ---
[facility] Referral Info Transfer To: F Provider in Charge after Transfer: PCP - Diagnosis (1) Bradycardia Priority: Primary Status: Resolved (2) Hypothyroidism Priority: Secondary Status: Acute (3) Anxiety Priority: Secondary Status: Chronic (4) Diastolic CHF Priority: Secondary Status: Chronic (5) Hypothermia Priority: Secondary Status: Resolved (6) Status post below knee amputation of left lower extremity Priority: Secondary Status: Chronic (7) DVT prophylaxis Priority: Secondary Status: Acute - Transfer Medications Prescriptions: Alprazolam [Xanax 0.5 MG Tablet] 0.5 mg PO QID PRN #30 tablet PRN Reason: Anxiety Home Medications: Isosorbide MONOnitrate (24 HR) [Imdur] 30 mg PO DAILY 07/03/15 [History] Docusate [Colace] 100 mg PO BID #20 capsule 08/31/16 [Rx] Pantoprazole Sodium [Protonix] 20 mg PO BID 11/22/16 [History] Furosemide [Lasix] 20 mg PO DAILY #30 tablet 11/25/16 [Rx] Vitamin B Complex/Vit C/Vit E [Stresstab] 1 each PO DAILY #30 tablet 11/25/16 [ Rx] HYDROcodone/Acet 5/325 mg [[place] 5-325 mg] 1 tab PO Q6H PRN #10 tab 01/19/17 [Rx ] Amlodipine Besylate 10 mg PO DAILY 02/12/17 [History] Folic Acid 1 mg PO DAILY 02/12/17 [History] Polyethylene Glycol 3350 [Smoothlax] 17 gm PO DAILY 02/12/17 [History] RisperiDONE [Risperidone] 1 mg PO BID 02/12/17 [History] Vit C/E/Zn/Coppr/Lutein/Zeaxan [Preservision Areds 2 Softgel] 1 cap PO BID 02/12 [History] Alprazolam [Xanax 0.5 MG Tablet] 0.5 mg PO QID PRN #30 tablet 02/14/17 [Rx] Levothyroxine [Synthroid] 112 mcg PO DAILY@0630 tablet 02/14/17 [Rx] Allergies/Adverse Reactions: Allergies No Known Allergies Allergy (Verified 02/11/17 20:34) - Respiratory Orders Smoking Cessation: Smoking cessation has been advised. For more information, call the [place] Tobacco Quit Line at 6-622-KACZ-NOW. - Treatments List/Other: Please follow up with your primary care physician within one week after your discharge from the hospital. Your home medications have been readjusted due to your presenting symptoms when you came to the hospital. Your home dose of Metoprolol has been discontinued. Hold Amlodipine if SBP<140 Use Lasix as needed for signs of volume overload (worsening of lower extremity edema, shortness of breath) Your home dose of Xanax has been changed to as needed rather than scheduled dose Your home dose of Levothyroxine was increased. Take this medication as prescribed. Continue all your other home medications as prescribed by your primary care physician and inform your primary care physician about the above medication changes. Patient needs assistance with feedings. CERTIFICATION: I certify that the transfer of the above named patient to an Extended Care Facility is necessary for the continuing treatment of the diagnosis listed. The above information is true and accurate reflection of patient's current condition. Confidential - Redisclosure prohibited without a patient's written consent.
[2017-02-14 19:28] VITALS: BP 117/55
== END 2017-02-14 15:53 ==
LOC: 2NNU 20:18 → EMEROO 20:18 → SUATTDRO 23:58 → 2NNU 02-12 00:30 → 3ANU 02-13 01:04
PROVIDERS: ADMIT Internal Medicine Cardiovascular Disease; ATTEND Internal Medicine